=== PATIENT | female | born 1995 | race African-American/Black ===

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

== ENCOUNTER 2018-03-06 12:23 | Emergency (ER) | payer SELFPAY ==
[2018-03-06 14:13] LABS: NEGATIVE OBC STREP NEG; POSITIVE OBC STREP POS
== END 2018-03-06 14:12 | disposition home or self-care (01) ==
LOC: ER 14:12
DX: J02.9 Acute pharyngitis, unspecified (principal)
CPT/HCPCS: 87070; 87880; 99283

== ENCOUNTER 2018-10-03 15:56 | Emergency (ER) | payer SELFPAY ==
[~2018-10-03] VITALS: Ht 172.7 cm; Wt 72.6 kg
[~2018-10-03 15:56] MED LIST changes: +HYDR-3164 PO; -HYDR-971 PO; +METH4TAB2 PO
--- NOTE | 2018-10-03 16:11 | PHYS DOC ---
Past Medical History Past Medical History: Other Additional Past Medical Histor: heart murmur (YONY HOPE VICTOR HUGO) Past Surgical History: Other Additional Past Surgical Histo: open heart surgery@2months old (JAYYYONY GAY) Alcohol Use: None Drug Use: None (DEIDREJESSICAArthurYONY GAY) Adult General Chief Complaint Chief Complaint: SEXUALLY TRANSMITTED DISEASE HPI HPI Patient is a 22 year old female with no significant medical history who presents today requesting STD check. Patient states she typically gets tested for STDs every 3 months including blood work, she states she went to the facility where she does the testing that were able to draw blood but were not able to do a pelvic exam. Patient denies any symptoms. She states she has sex with one partner who has sex with multiple partners.[] (JAYYYONY GAY) Review of Systems Review of Systems Constitutional: Denies fever or chills [] GI: Request for STD checks. Denies abdominal pain, nausea, vomiting, bloody stools or diarrhea [] : Denies dysuria or hematuria [] Musculoskeletal: Denies back pain or joint pain [] Integument: Denies rash or skin lesions [] Neurologic: Denies headache, focal weakness or sensory changes [] All other systems were reviewed and found to be within normal limits, except as documented in this note. (YONY HOPE VICTOR HUGO) Current Medications Current Medications Current Medications Medications (Trade) Dose Ordered Sig/Andrew Start Time Stop Time Status Last Admin Dose Admin Azithromycin (Zithromax) 1,000 mg 1X ONCE 10/03/18 16:45 10/03/18 16:46 DC 10/03/18 16:44 1,000 MG Ceftriaxone Sodium (Rocephin Im) 250 mg 1X ONCE 10/03/18 16:45 10/03/18 16:46 DC 10/03/18 16:44 250 MG Metronidazole (Flagyl) 2,000 mg 1X ONCE 10/03/18 16:45 10/03/18 16:46 DC 10/03/18 16:43 2,000 MG (SABRINA BENNETT DO) Allergies Allergies Allergies Coded Allergies Type Severity Reaction Last Updated Verified No Known Drug Allergies 12/13/16 No (SABRINA BENNETT DO) Physical Exam Physical Exam Constitutional: Well developed, well nourished, no acute distress, non-toxic appearance. [] Abdomen: Bowel sounds normal, soft, no tenderness, no masses, no pulsatile masses. [] Pelvic exam External pelvic appears normal, cervix is closed, no CMT, no adnexal tenderness, Skin: Warm, dry, no erythema, no rash. [] Back: No tenderness, no CVA tenderness. [] Extremities: No tenderness, no cyanosis, no clubbing, ROM intact, no edema. [] Neurologic: Alert and oriented X 3, normal motor function, normal sensory function, no focal deficits noted. [] Psychologic: Affect normal, judgement normal, mood normal. [] (YONY HOPE APRN) Current Patient Data Vital Signs Vital Signs Date Time Temp Pulse Resp B/P (MAP) Pulse Ox O2 Delivery O2 Flow Rate FiO2 10/03/18 16: 98.4 81 16 128/85 (99) 100 Room Air 98.4 (ALGAentis) Lab Values Laboratory Tests Test 10/03/18 16:20 10/03/18 16:30 Urine Collection Type Unknown Urine Color Yellow Urine Clarity Clear Urine pH 7.5 Urine Specific Baker >=1.030 Urine Protein Negative mg/dL (NEG-TRACE) Urine Glucose (UA) Negative mg/dL (NEG) Urine Ketones (Stick) Negative mg/dL (NEG) Urine Blood Negative (NEG) Urine Nitrite Negative (NEG) Urine Bilirubin Negative (NEG) Urine Urobilinogen Dipstick 1.0 mg/dL (0.2 mg/dL) Urine Leukocyte Esterase Moderate (NEG) Urine RBC Occ /HPF (0-2) Urine WBC 20-40 /HPF (0-4) Urine Squamous Epithelial Cells Many /LPF Urine Bacteria Few /HPF (0-FEW) Urine Mucus Marked /LPF POC Urine HCG, Qualitative Hcg negative (Negative) Microbiology 10/03/18 Wet Prep - Final, Complete (ALGAentis) Lab Values Laboratory Tests Test 10/03/18 16:20 10/03/18 16:30 Urine Collection Type Unknown Urine Color Yellow Urine Clarity Clear Urine pH 7.5 Urine Specific Baker >=1.030 Urine Protein Negative mg/dL (NEG-TRACE) Urine Glucose (UA) Negative mg/dL (NEG) Urine Ketones (Stick) Negative mg/dL (NEG) Urine Blood Negative (NEG) Urine Nitrite Negative (NEG) Urine Bilirubin Negative (NEG) Urine Urobilinogen Dipstick 1.0 mg/dL (0.2 mg/dL) Urine Leukocyte Esterase Moderate (NEG) Urine RBC Occ /HPF (0-2) Urine WBC 20-40 /HPF (0-4) Urine Squamous Epithelial Cells Many /LPF Urine Bacteria Few /HPF (0-FEW) Urine Mucus Marked /LPF POC Urine HCG, Qualitative Hcg negative (Negative) Microbiology 10/03/18 Wet Prep - Final, Complete (YONY HOPE APRN) EKG EKG [] (YONY HOPE APRN) Radiology/Procedures Radiology/Procedures [] (YONY HOPE APRN) Course & Med Decision Making Course & Med Decision Making Pertinent Labs and Imaging studies reviewed. (See chart for details) This is a 22-year-old female patient presented to the ED today with STD concern. Patient would like to be tested. Patient was given prophylaxis treatment for STDs in the ED. STD education also provided. Negative urine hCG, urine analysis is noted for UTI-discharged on Bactrim. Positive for bacterial vaginosis-discharge and Flagyl. Follow-up with the health department as needed for STDs. (YONY HOPE APRN) Dragon Disclaimer Dragon Disclaimer This electronic medical record was generated, in whole or in part, using a voice recognition dictation system. (YONY HOPE APRN) Departure Departure Impression: Primary Impression: Concern about STD in female without diagnosis Additional Impressions: Bacterial vaginosis Urinary tract infection Disposition: 01 HOME, SELF-CARE Condition: STABLE Referrals: NO PCP (PCP) Follow-up with the health department in 1-2 weeks as needed Patient Instructions: Bacterial Vaginosis, Sexually Transmitted Disease, Urinary Tract Infection Additional Instructions: You were treated in the emergency room for sexually transmitted diseases specifically gonorrhea chlamydia and Trichomonas. Use protection at all times. Contact all your sex partners, let them know you were treated for STDs and ask them to seek treatment too. Use protection at all times. Complete the prescribed antibiotics for urinary tract infection and bacterial vaginosis. Do not have sex for one week. Scripts Fluconazole (DIFLUCAN) 150 Mg Tablet 1 TAB PO ONCE, #1 TAB 1 Refill Take one today and repeat in 1 week Prov: YONY HOPE APRN 10/03/18 Sulfamethoxazole/Trimethoprim (BACTRIM DS TABLET) 1 Each Tablet 1 TAB PO BID, #14 TAB Prov: YONY HOPE [employer] RESOURCES ENGINEER 10/03/18 Metronidazole (FLAGYL) 500 Mg Tablet 1 TAB PO BID, #10 TAB Prov: YONY HOPE [employer] ENGINEER 10/03/18 Attending Signature Attending Signature I have reviewed the PA/GUZZLER BUILDER's note and plan of care. I was available for consultation as needed during the patient's visit in the emergency department. I agree with the clinical impression, plan, and disposition. (SABRINA BENNETT DO) Problem Qualifiers Additional Impressions: Urinary tract infection Urinary tract infection type: site unspecified Hematuria presence: without hematuria Qualified Codes: N39.0 - Urinary tract infection, site not specified DEIDREYONY RODNEY VICTOR HUGO Oct 03, 2018 16:11 SABRINA BENNETT DO Oct 04, 2018 08:57
[2018-10-03 16:29] VITALS: BP 128/85
[2018-10-03 16:33] LABS: BILIRUBIN,URINE NEGATIVE (NEG); CLARITY,URINE CLEAR; COLOR,URINE YELLOW; NITRITE,URINE NEGATIVE (NEG); PH,URINE 7.5; PROTEIN,URINE NEGATIVE (NEG-TRACE)
[2018-10-03 16:39] LABS: BACTERIA,URINE FEW /HPF (0-FEW); RBC,URINE OCC /HPF (0-2); SQUAMOUS EPITHELIAL CELL,UR MANY /LPF; WBC,URINE 20-40 /HPF (0-4)
[2018-10-03] MEDS ORDERED: cefTRIAXone IM 250 MG VIAL IM ONE (16:45)
[2018-10-03] MEDS ORDERED: metroNIDAZOLE 500 MG TABLET PO ONE (16:45)
[2018-10-03] MEDS ORDERED: AZITHROMYCIN 250 MG TABLET. PO ONE (16:45)
[2018-10-03] MEDS ORDERED: METR500T PO (17:02)
[2018-10-03] MEDS ORDERED: SULF1TAB24 PO (17:02)
[2018-10-03] MEDS ORDERED: FLUC150T PO (17:02)
[2018-10-04 13:23] LABS: GC PROBE Negative (Negative)
== END 2018-10-03 17:05 | disposition home or self-care (01) ==
LOC: ER 15:56
DX: Z20.2 Contact with and (suspected) exposure to infections with a predominantly sexual mode of transmission (principal); N76.0 Acute vaginitis; B96.89 Other specified bacterial agents as the cause of diseases classified elsewhere; N39.0 Urinary tract infection, site not specified
CPT/HCPCS: 81001; 81025; 87491; 87591; 96372; 99283; J0696; Q0111; Q0144

== ENCOUNTER 2018-10-15 20:32 | Emergency (ER) | payer SELFPAY ==
[~2018-10-15] VITALS: Ht 172.7 cm; Wt 72.6 kg
[~2018-10-15 20:32] MED LIST changes: +FLUC150T PO; +METR500T PO; +SULF1TAB24 PO
[2018-10-15 20:35] VITALS: BP 110/61
--- NOTE | 2018-10-15 20:59 | PHYS DOC ---
Past Medical History Past Medical History: STD, Other Additional Past Medical Histor: heart murmur Past Surgical History: Other Additional Past Surgical Histo: open heart surgery@2months old Alcohol Use: None Drug Use: None Adult General Chief Complaint Chief Complaint: SEXUALLY TRANSMITTED DISEASE HPI HPI Patient is a 23 year old female who presents for STD treatment. Patient states she was treated for STDs on October 03, 2018, she states unfortunately she did not wait, she states she resumed unprotected sex right away and believes she contracted STDs again. She is complaining of vaginal itching and burning. She is refusing to be tested this time. She states she was informed last time she had chlamydia. She would like to be treated. She states she normally does "one night stands". She states she has multiple partners and her partners also have multiple partners. Review of Systems Review of Systems Constitutional: Denies fever or chills [] GI: Denies abdominal pain, nausea, vomiting, bloody stools or diarrhea [] : Vaginal itching, burning, concern for STDs Musculoskeletal: Denies back pain or joint pain [] Integument: Denies rash or skin lesions [] Neurologic: Denies headache, focal weakness or sensory changes [] All other systems were reviewed and found to be within normal limits, except as documented in this note. Current Medications Current Medications Current Medications Medications (Trade) Dose Ordered Sig/Andrew Start Time Stop Time Status Last Admin Dose Admin Azithromycin (Zithromax) 1,000 mg 1X ONCE 10/15/18 21:00 10/15/18 21:01 DC Ceftriaxone Sodium (Rocephin Im) 250 mg 1X ONCE 10/15/18 21:00 10/15/18 21:01 DC Metronidazole (Flagyl) 2,000 mg 1X ONCE 10/15/18 21:00 10/15/18 21:01 DC Allergies Allergies Allergies Coded Allergies Type Severity Reaction Last Updated Verified No Known Drug Allergies 12/13/16 No Physical Exam Physical Exam Constitutional: Well developed, well nourished, no acute distress, non-toxic appearance. [] Abdomen: Bowel sounds normal, soft, no tenderness, no masses, no pulsatile masses. [] Skin: Warm, dry, no erythema, no rash. [] Back: No tenderness, no CVA tenderness. [] Extremities: No tenderness, no cyanosis, no clubbing, ROM intact, no edema. [] Neurologic: Alert and oriented X 3, normal motor function, normal sensory function, no focal deficits noted. [] Psychologic: Affect normal, judgement normal, mood normal. [] Current Patient Data Vital Signs Vital Signs Date Time Temp Pulse Resp B/P (MAP) Pulse Ox O2 Delivery O2 Flow Rate FiO2 10/15/18 20:35 98.1 75 16 110/61 (77) 98 Room Air 98.1 EKG EKG [] Radiology/Procedures Radiology/Procedures [] Course & Med Decision Making Course & Med Decision Making Pertinent Labs and Imaging studies reviewed. (See chart for details) This is a 23-year-old. Patient presenting to the ED today to be treated for STDs. Patient was treated on October 03, 2018, she unfortunately had unprotected sex with a different partner. She states she currently has vaginal itching and burning. She would like to be treated and not to be tested because last time she tested positive for chlamydia. Patient has multiple partners and unprotected sex. Talked to patient about the need to use protection. Talked to her about the need to contact all has sex partners and let them know she was treated for STDs and ask them to seek treatment too. Talked to patient about following up with the health department. She seem to laugh during the conversations despite being told the seriousness of STDs. Patient was treated in the ED, given prescription for doxycycline. Dragon Disclaimer Dragon Disclaimer This electronic medical record was generated, in whole or in part, using a voice recognition dictation system. Departure Departure Impression: Primary Impression: Concern about STD in female without diagnosis Disposition: 01 HOME, SELF-CARE Condition: STABLE Referrals: NO PCP (PCP) Follow-up with the health department for further STD concerns Patient Instructions: Sexually Transmitted Disease Additional Instructions: You were treated for sexually transmitted diseases. We put you on doxycycline. Ensure you complete it. Please do not have sex for 2 weeks. Please consider using protection during sexual intercourse. Please contact all your sex partners , let them know you were treated for STDs and ask them to seek treatment too. Scripts Doxycycline Hyclate (DOXYCYCLINE HYCLATE) 100 Mg Tablet 1 TAB PO BID, #14 TAB Prov: YONY HOPE APRN 10/15/18 YONY HOPE APRN Oct 15, 2018 20:59
[2018-10-15] MEDS ORDERED: cefTRIAXone IM 250 MG VIAL IM ONE (21:00)
[2018-10-15] MEDS ORDERED: metroNIDAZOLE 500 MG TABLET PO ONE (21:00)
[2018-10-15] MEDS ORDERED: AZITHROMYCIN 250 MG TABLET. PO ONE (21:00)
[2018-10-15] MEDS ORDERED: DOXY100T PO (21:08)
[2019-03-24] MEDS ORDERED: MUPI22OI2 TP (15:44)
[2019-03-24] MEDS ORDERED: PRED20TA PO (15:44)
== END 2018-10-15 21:35 | disposition home or self-care (01) ==
LOC: ER 20:32
DX: L29.3 Anogenital pruritus, unspecified (principal); Z20.2 Contact with and (suspected) exposure to infections with a predominantly sexual mode of transmission
CPT/HCPCS: 96372; 99283; J0696; Q0144

== ENCOUNTER 2018-11-17 15:34 | Emergency (ER) | payer SELFPAY ==
[~2018-11-17] VITALS: Ht 172.7 cm; Wt 73.9 kg
[~2018-11-17 15:34] MED LIST changes: +DOXY100T PO
[2018-11-17 17:03] LABS: BILIRUBIN,URINE NEGATIVE (NEG); CLARITY,URINE CLEAR; COLOR,URINE YELLOW; NITRITE,URINE NEGATIVE (NEG); PROTEIN,URINE NEGATIVE (NEG-TRACE); UROBILINOGEN,URINE 0.2 mg/dL (0.2 mg/dL)
[2018-11-17 17:39] LABS: RBC,URINE 0 /HPF (0-2); WBC,URINE OCC /HPF (0-4)
--- NOTE | 2018-11-17 17:39 | PHYS DOC ---
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 She states that she took a home test that was positive a week ago. She denies any abdominal pain, dysuria, vaginal bleeding, irregular vaginal discharge, or fever. She states she has had some dark brown vaginal bleeding after intercourse recently. Pt declines a pelvic exam. She states she would like to know how far along she is. Pt reports her LMP was 09/20/18. She denies any nausea at this time. Pt states she has only vomited once per day first thing in the mornings. She denies any dizziness. (PHOENIX ALEX APRN) Review of Systems Review of Systems Constitutional: Denies fever or chills [] Cardiovascular: No additional information not addressed in HPI [] GI: Reports lower abdominal bloating, see HPI : Denies dysuria or hematuria; See HPI [] Integument: Denies rash or skin lesions [] Neurologic: Denies headache (PHOENIX ALEX APRN) Allergies Allergies Allergies Coded Allergies Type Severity Reaction Last Updated Verified No Known Drug Allergies 12/13/16 No (SHAILA ROMEO MD) Physical Exam Physical Exam Constitutional: Well developed, well nourished, no acute distress, non-toxic appearance. [] HENT: Normocephalic, atraumatic, bilateral external ears normal, oropharynx moist, no oral exudates, nose normal. [] Eyes: conjunctiva normal, no discharge. [] Neck: Normal range of motion, no stridor. [] Lungs & Thorax: respirations even and unlabored, no retractions. Abdomen: soft, no tenderness, no masses, no pulsatile masses. [] Skin: Warm, dry, no erythema, no rash. [] Extremities: No cyanosis, no clubbing, ROM intact, Neurologic: Alert and oriented X 3, no focal deficits noted. [] Psychologic: Affect normal, judgement normal, mood normal. [] (PHOENIX ALEX APRN) Current Patient Data Vital Signs Vital Signs Date Time Temp Pulse Resp B/P (MAP) Pulse Ox O2 Delivery O2 Flow Rate FiO2 11/17/18 17:50 81 16 122/60 (80) 100 Room Air 11/17/18 16:34 98.7 98.7 (SHAILA ROMEO MD) Lab Values Laboratory Tests Test 11/17/18 16:50 11/17/18 16:55 Urine Color Yellow Urine Clarity Clear Urine pH 8.0 Urine Specific Darrow 1.020 Urine Protein Negative mg/dL (NEG-TRACE) Urine Glucose (UA) Negative mg/dL (NEG) Urine Ketones (Stick) Negative mg/dL (NEG) Urine Blood Negative (NEG) Urine Nitrite Negative (NEG) Urine Bilirubin Negative (NEG) Urine Urobilinogen Dipstick 0.2 mg/dL (0.2 mg/dL) Urine Leukocyte Esterase Negative (NEG) Urine RBC 0 /HPF (0-2) Urine WBC Occ /HPF (0-4) Urine Squamous Epithelial Cells Occ /LPF Urine Bacteria Few /HPF (0-FEW) Urine Mucus Slight /LPF POC Urine HCG, Qualitative Hcg positive (Negative) (SHAILA ROMEO MD) EKG EKG [] (PHOENIX ALEX APRN) Radiology/Procedures Radiology/Procedures pt declined pelvic exam, denies any vaginal bleeding or irregular discharge today. [] (PHOENIX ALEX APRN) Course & Med Decision Making Course & Med Decision Making Pertinent Labs and Imaging studies reviewed. (See chart for details) Urine test was positive, bedside ultrasound revealed a pole visible in uterus with a HR of 150, pt declined pelvic ultrasound and pelvic exam. According to LMP, EDC is 06/27/19 and gestational age is 8 weeks 2 days. Pt was encouraged to follow up with Dr. Bro for further care. [] (PHOENIX ALEX APRN) Course & Med Decision Making Staff Physician Addendum: I was working in the ER during the course of this patient's visit. I was available for consultation as needed, but I was not directly involved in the care of this patient. (SHAILA ROMEO MD) Dragon Disclaimer Dragon Disclaimer This electronic medical record was generated, in whole or in part, using a voice recognition dictation system. (PHOENIX ALEX APRN) Departure Departure Impression: Primary Impression: Disposition: 01 HOME, SELF-CARE Condition: STABLE Referrals: NO PCP (PCP) KATHRIN BRO MD Patient Instructions: ABCs of Additional Instructions: According to your last menstrual cycle your due date is 06/27/19 and the baby's gestational age is 8 weeks 2 days. Begin taking a vitamin daily. Call Dr. Bro's office to establish care with an OBGyn. Return to the ER if your symptoms worsen. Problem Qualifiers Primary Impression: Weeks of gestation: 8 weeks Qualified Codes: Z3A.08 - 8 weeks gestation of PHOENIX ALEX APRN Nov 17, 2018 17:39 SHAILA ROMEO MD Nov 18, 2018 08:08
[2018-11-17 17:40] LABS: BACTERIA,URINE FEW /HPF (0-FEW); SQUAMOUS EPITHELIAL CELL,UR OCC /LPF
[2018-11-17 17:50] VITALS: BP 122/60
== END 2018-11-17 17:57 | disposition home or self-care (01) ==
LOC: ER 15:34
DX: O21.8 Other vomiting complicating pregnancy (principal); R14.0 Abdominal distension (gaseous); Z3A.08 8 weeks gestation of pregnancy
CPT/HCPCS: 81001; 81025; 99283

== ENCOUNTER 2018-11-30 10:47 | Emergency (ER) | payer SELFPAY ==
[~2018-11-30] VITALS: Ht 172.7 cm; Wt 61.7 kg
[2018-11-30] MEDS ORDERED: IV NORMAL SALINE 1000ML BAG 1,000 ML IV SCH (11:51)
[2018-11-30] MEDS ORDERED: ONDANSETRON PF 4 MG/2 ML VIAL. IV ONE (12:00)
[2018-11-30 12:22] LABS: BILIRUBIN,URINE NEGATIVE (NEG); CLARITY,URINE CLOUDY; COLOR,URINE YELLOW; NITRITE,URINE NEGATIVE (NEG); PH,URINE 8.5; PROTEIN,URINE NEGATIVE (NEG-TRACE); UROBILINOGEN,URINE 0.2 mg/dL (0.2 mg/dL)
[2018-11-30 12:37] LABS: SQUAMOUS EPITHELIAL CELL,UR MOD /LPF
[2018-11-30 12:38] LABS: AMORPHOUS SEDIMENT,UR PRESENT /HPF; BACTERIA,URINE FEW /HPF (0-FEW); RBC,URINE 0 /HPF (0-2); WBC,URINE OCC /HPF (0-4)
[2018-11-30 12:46] LABS: BASO # 0.1 x10^3/uL (0.0-0.2); BASO % 2 % (0-3); EOS # 0.1 x10^3/uL (0.0-0.7); EOS % 1 % (0-3); HEMATOCRIT 37.1 % (36.0-47.0); HEMOGLOBIN 11.8 g/dL (12.0-15.5); LYMPH # 1.4 x10^3/uL (1.0-4.8); LYMPH % 26 % (24-48); MEAN CORPUSCULAR HEMOGLOBIN 28 pg (25-35); MEAN CORPUSCULAR HGB CONC 32 g/dL (31-37); MEAN CORPUSCULAR VOLUME 87 fL (79-100); MONO # 0.4 x10^3/uL (0.0-1.1); MONO % 7 % (0-9); NEUT # 3.6 x10^3uL (1.8-7.7); NEUT % 65 % (31-73); PLATELET COUNT 206 x10^3/uL (140-400); RED BLOOD COUNT 4.26 x10^6/uL (3.50-5.40); RED CELL DISTRIBUTION WIDTH 14.6 % (11.5-14.5); WHITE BLOOD COUNT 5.5 x10^3/uL (4.0-11.0)
--- NOTE | 2018-11-30 12:47 | PHYS DOC ---
Past Medical History Past Medical History: No Pertinent History, STD, Other Additional Past Medical Histor: heart murmur from FO or tetralogy Past Surgical History: Other Additional Past Surgical Histo: open heart surgery@2months old Alcohol Use: None Drug Use: None Adult General Chief Complaint Chief Complaint: VOMITING IN HPI HPI Patient is a 23 year old female at 10 weeks of gestation who presents with complaining of nausea and vomiting. Patient complaining of 3 episodes of vomiting a day for the last 3 weeks and states she is not able to eat or drink. Patient denies abdominal pain, vaginal bleeding or discharge, urinary symptoms, fever and chills. Patient did not have OB care yet. Review of Systems Review of Systems Constitutional: Denies fever or chills [] Eyes: Denies change in visual acuity, redness, or eye pain [] HENT: Denies nasal congestion or sore throat [] Respiratory: Denies cough or shortness of breath [] Cardiovascular: No additional information not addressed in HPI [] GI: Denies abdominal pain, diarrhea, reports nausea, vomiting [] : Denies dysuria or hematuria [] Musculoskeletal: Denies back pain or joint pain [] Integument: Denies rash or skin lesions [] Neurologic: Denies headache, focal weakness or sensory changes [] Endocrine: Denies polyuria or polydipsia [] All other systems were reviewed and found to be within normal limits, except as documented in this note. Current Medications Current Medications Current Medications Medications (Trade) Dose Ordered Sig/Andrew Start Time Stop Time Status Last Admin Dose Admin Ondansetron HCl (Zofran) 4 mg 1X ONCE 11/30/18 12:00 11/30/18 12:01 DC 11/30/18 12:30 4 MG Sodium Chloride 1,000 ml @ 1,000 mls/hr Q1H 11/30/18 11:51 11/30/18 12:50 DC 11/30/18 12:30 1,000 MLS/HR Allergies Allergies Allergies Coded Allergies Type Severity Reaction Last Updated Verified No Known Drug Allergies 12/13/16 No Physical Exam Physical Exam Constitutional: Well developed, well nourished, mild distress, non-toxic appearance. [] HENT: Normocephalic, atraumatic, oropharynx moist. [] Eyes: PERRLA, EOMI, conjunctiva normal, no discharge. [] Neck: Normal range of motion, no tenderness, supple, no stridor. [] Cardiovascular:Heart rate regular rhythm, no murmur [] Lungs & Thorax: Bilateral breath sounds clear to auscultation [] Abdomen: Bowel sounds normal, soft, no tenderness, no masses, no pulsatile masses. heart rate 190[] Skin: Warm, dry, no erythema, no rash. [] Back: No tenderness, no CVA tenderness. [] Extremities: No tenderness, no cyanosis, no clubbing, ROM intact, no edema. [] Neurologic: Alert and oriented X 3, normal motor function, normal sensory function, no focal deficits noted. [] Psychologic: Affect normal, judgement normal, mood normal. [] Current Patient Data Vital Signs Vital Signs Date Time Temp Pulse Resp B/P (MAP) Pulse Ox O2 Delivery O2 Flow Rate FiO2 11/30/18 11:00 97.2 93 18 108/74 (85) 100 Room Air 97.2 Lab Values Laboratory Tests Test 11/30/18 12:07 11/30/18 12:11 11/30/18 12:30 Urine Collection Type Unknown Urine Color Yellow Urine Clarity Cloudy Urine pH 8.5 Urine Specific [place] 1.020 Urine Protein Negative mg/dL (NEG-TRACE) Urine Glucose (UA) Negative mg/dL (NEG) Urine Ketones (Stick) Negative mg/dL (NEG) Urine Blood Negative (NEG) Urine Nitrite Negative (NEG) Urine Bilirubin Negative (NEG) Urine Urobilinogen Dipstick 0.2 mg/dL (0.2 mg/dL) Urine Leukocyte Esterase Negative (NEG) Urine RBC 0 /HPF (0-2) Urine WBC Occ /HPF (0-4) Urine Squamous Epithelial Cells Mod /LPF Urine Amorphous Sediment Present /HPF Urine Bacteria Few /HPF (0-FEW) POC Urine HCG, Qualitative Hcg positive (Negative) White Blood Count 5.5 x10^3/uL (4.0-11.0) Red Blood Count 4.26 x10^6/uL (3.50-5.40) Hemoglobin 11.8 g/dL (12.0-15.5) L Hematocrit 37.1 % (36.0-47.0) Mean Corpuscular Volume 87 fL (79-100) Mean Corpuscular Hemoglobin 28 pg (25-35) Mean Corpuscular Hemoglobin Concent 32 g/dL (31-37) Red Cell Distribution Width 14.6 % (11.5-14.5) H Platelet Count 206 x10^3/uL (140-400) Neutrophils (%) (Auto) 65 % (31-73) Lymphocytes (%) (Auto) 26 % (24-48) Monocytes (%) (Auto) 7 % (0-9) Eosinophils (%) (Auto) 1 % (0-3) Basophils (%) (Auto) 2 % (0-3) Neutrophils # (Auto) 3.6 x10^3uL (1.8-7.7) Lymphocytes # (Auto) 1.4 x10^3/uL (1.0-4.8) Monocytes # (Auto) 0.4 x10^3/uL (0.0-1.1) Eosinophils # (Auto) 0.1 x10^3/uL (0.0-0.7) Basophils # (Auto) 0.1 x10^3/uL (0.0-0.2) Maternal Serum HCG Beta Subunit 975775 mIU/mL (0-5) H Sodium Level 138 mmol/L (136-145) Potassium Level 4.0 mmol/L (3.5-5.1) Chloride Level 102 mmol/L (98-107) Carbon Dioxide Level 25 mmol/L (21-32) Anion Gap 11 (6-14) Blood Urea Nitrogen 9 mg/dL (7-20) Creatinine 0.5 mg/dL (0.6-1.0) L Estimated GFR (Cockcroft-Gault) 188.5 BUN/Creatinine Ratio 18 (6-20) Glucose Level 89 mg/dL (70-99) Calcium Level 9.3 mg/dL (8.5-10.1) Total Bilirubin 0.5 mg/dL (0.2-1.0) Aspartate Amino Transferase (AST) 13 U/L (15-37) L Alanine Aminotransferase (ALT) 14 U/L (14-59) Alkaline Phosphatase 60 U/L (46-116) Total Protein 7.3 g/dL (6.4-8.2) Albumin 4.1 g/dL (3.4-5.0) Albumin/Globulin Ratio 1.3 (1.0-1.7) Laboratory Tests 11/30/18 12:30 Laboratory Tests 11/30/18 12:30 EKG EKG [] Radiology/Procedures Radiology/Procedures [] Course & Med Decision Making Course & Med Decision Making Pertinent Labs reviewed. (See chart for details) Evaluation of patient in ER showed 23-year-old female patient at 10 weeks of gestation with complaining of episodes of vomiting for several weeks. Patient had unremarkable physical exam. Patient had intrauterine confirmed with previous ultrasound. Patient treated with IV fluid and Zofran and tolerated oral intake. Labs was unremarkable. Patient was advised to follow-up with her FOOD EQUIPMENT SERVICE TECHNICIAN. Prescription for Zofran was given. Dragon Disclaimer Dragon Disclaimer This electronic medical record was generated, in whole or in part, using a voice recognition dictation system. Departure Departure Impression: Primary Impression: Hyperemesis gravidarum Disposition: HOME, SELF-CARE (at 1347) Condition: IMPROVED Referrals: NO PCP (PCP) Patient Instructions: Diet - Hyperemesis Gravidarum, Hyperemesis Gravidarum Additional Instructions: Drink plenty of liquids Follow-up with your FOOD EQUIPMENT SERVICE TECHNICIAN physician in 3-5 days Return to ER if not getting better Scripts Ondansetron Hcl (ZOFRAN) 4 Mg Tablet 1 TAB PO PRN Q6-8HRS for nausea, #20 TAB Prov: TIM LEONARD MD 11/30/18 TIM LEONARD MD Nov 30, 2018 12:47
[2018-11-30 12:57] LABS: CALCIUM 9.3 mg/dL (8.5-10.1); CREATININE 0.5 mg/dL (0.6-1.0); GFR 188.5
[2018-11-30 13:00] VITALS: BP 98/60
[2018-11-30 13:02] LABS: ALBUMIN 4.1 g/dL (3.4-5.0); ALBUMIN/GLOBULIN RATIO 1.3 (1.0-1.7); TOTAL BILIRUBIN 0.5 mg/dL (0.2-1.0); TOTAL PROTEIN 7.3 g/dL (6.4-8.2)
[2018-11-30] MEDS ORDERED: ONDA4TAB7 PO (13:48)
== END 2018-11-30 14:05 | disposition home or self-care (01) ==
LOC: ER 10:47
DX: O21.0 Mild hyperemesis gravidarum (principal); Z3A.10 10 weeks gestation of pregnancy
CPT/HCPCS: 36415; 80053; 81001; 81025; 84702; 85025; 96361; 96374; 99283; J2405; J7030

== ENCOUNTER 2018-12-13 08:22 | Emergency (ER) | payer SELFPAY ==
[~2018-12-13] VITALS: Ht 172.7 cm; Wt 59.4 kg
[~2018-12-13 08:22] MED LIST changes: +ONDA4TAB7 PO
--- NOTE | 2018-12-13 08:49 | PHYS DOC ---
Past Medical History Past Medical History: No Pertinent History, STD, Other Additional Past Medical Histor: heart murmur from FO or tetralogy Past Surgical History: Other Additional Past Surgical Histo: open heart surgery@2months old Alcohol Use: None Drug Use: None Adult General Chief Complaint Chief Complaint: VAGINAL BLEEDING HPI HPI Patient is a 23 year old female is 1 para 0 currently 12 weeks presenting to the ED today complaining of spotting that began this morning. Patient denies any abdominal pain. Denies any nausea or vomiting she states she is supposed to see Dr. Morales next week. Patient also states she is currently on Monistat for vaginal candidiasis. Review of Systems Review of Systems Constitutional: Denies fever or chills [] Eyes: Denies change in visual acuity, redness, or eye pain [] HENT: Denies nasal congestion or sore throat [] Respiratory: Denies cough or shortness of breath [] Cardiovascular: No additional information not addressed in HPI [] GI: Reports vag. spotting. Denies abdominal pain, nausea, vomiting, bloody stools or diarrhea [] : Denies dysuria or hematuria [] Musculoskeletal: Denies back pain or joint pain [] Integument: Denies rash or skin lesions [] Neurologic: Denies headache, focal weakness or sensory changes [] All other systems were reviewed and found to be within normal limits, except as documented in this note. Current Medications Current Medications Current Medications Medications (Trade) Dose Ordered Sig/Anderw Start Time Stop Time Status Last Admin Dose Admin Prochlorperazine Edisylate (Compazine) 10 mg 1X ONCE 12/13/18 12:15 12/13/18 12:17 DC Allergies Allergies Allergies Coded Allergies Type Severity Reaction Last Updated Verified No Known Drug Allergies 12/13/16 No Physical Exam Physical Exam Constitutional: Well developed, well nourished, no acute distress, non-toxic appearance. [] HENT: Normocephalic, atraumatic, bilateral external ears normal, oropharynx moist, no oral exudates, nose normal. [] Eyes: PERRLA, EOMI, conjunctiva normal, no discharge. [] Neck: Normal range of motion, no tenderness, supple, no stridor. [] Cardiovascular:Heart rate regular rhythm, no murmur [] Lungs & Thorax: Bilateral breath sounds clear to auscultation [] Abdomen: Bowel sounds normal, soft, no tenderness, no masses, no pulsatile masses. [] Pelvic exam. External pelvic appears normal, cervix is visualized, closed, no CMT, no adnexal tenderness, trace amount of brownish discharge in the vaginal vault consistent with spotting Skin: Warm, dry, no erythema, no rash. [] Back: No tenderness, no CVA tenderness. [] Extremities: No tenderness, no cyanosis, no clubbing, ROM intact, no edema. [] Neurologic: Alert and oriented X 3, normal motor function, normal sensory function, no focal deficits noted. [] Psychologic: Affect normal, judgement normal, mood normal. [] Current Patient Data Vital Signs Vital Signs Date Time Temp Pulse Resp B/P (MAP) Pulse Ox O2 Delivery O2 Flow Rate FiO2 12/13/18 08:25 97.6 87 14 133/80 (97) 100 Room Air 97.6 Lab Values Laboratory Tests Test 12/13/18 08:25 12/13/18 08:44 12/13/18 11:03 Urine Collection Type Unknown Urine Color Yellow Urine Clarity Cloudy Urine pH 7.0 Urine Specific [place] 1.025 Urine Protein Negative mg/dL (NEG-TRACE) Urine Glucose (UA) Negative mg/dL (NEG) Urine Ketones (Stick) Negative mg/dL (NEG) Urine Blood Moderate (NEG) Urine Nitrite Negative (NEG) Urine Bilirubin Negative (NEG) Urine Urobilinogen Dipstick 0.2 mg/dL (0.2 mg/dL) Urine Leukocyte Esterase Moderate (NEG) Urine RBC 0 /HPF (0-2) Urine WBC 11-20 /HPF (0-4) Urine Squamous Epithelial Cells Mod /LPF Urine Amorphous Sediment Present /HPF Urine Bacteria Few /HPF (0-FEW) Urine Mucus Marked /LPF Urine Opiates Screen Neg (NEG) Urine Methadone Screen Neg (NEG) Urine Barbiturates Neg (NEG) Urine Phencyclidine Screen Neg (NEG) Urine Amphetamine/Methamphetamine Neg (NEG) Urine Benzodiazepines Screen Neg (NEG) Urine Cocaine Screen Neg (NEG) Urine Cannabinoids Screen Neg (NEG) Urine Ethyl Alcohol Neg (NEG) POC Urine HCG, Qualitative Hcg positive (Negative) White Blood Count 6.7 x10^3/uL (4.0-11.0) Red Blood Count 4.49 x10^6/uL (3.50-5.40) Hemoglobin 12.5 g/dL (12.0-15.5) Hematocrit 38.8 % (36.0-47.0) Mean Corpuscular Volume 87 fL (79-100) Mean Corpuscular Hemoglobin 28 pg (25-35) Mean Corpuscular Hemoglobin Concent 32 g/dL (31-37) Red Cell Distribution Width 14.4 % (11.5-14.5) Platelet Count 250 x10^3/uL (140-400) Neutrophils (%) (Auto) 70 % (31-73) Lymphocytes (%) (Auto) 21 % (24-48) L Monocytes (%) (Auto) 8 % (0-9) Eosinophils (%) (Auto) 1 % (0-3) Basophils (%) (Auto) 0 % (0-3) Neutrophils # (Auto) 4.7 x10^3uL (1.8-7.7) Lymphocytes # (Auto) 1.4 x10^3/uL (1.0-4.8) Monocytes # (Auto) 0.5 x10^3/uL (0.0-1.1) Eosinophils # (Auto) 0.1 x10^3/uL (0.0-0.7) Basophils # (Auto) 0.0 x10^3/uL (0.0-0.2) Maternal Serum HCG Beta Subunit 315016 mIU/mL (0-5) H Sodium Level 139 mmol/L (136-145) Potassium Level 3.6 mmol/L (3.5-5.1) Chloride Level 103 mmol/L (98-107) Carbon Dioxide Level 23 mmol/L (21-32) Anion Gap 13 (6-14) Blood Urea Nitrogen 9 mg/dL (7-20) Creatinine 0.6 mg/dL (0.6-1.0) Estimated GFR (Cockcroft-Gault) 152.7 BUN/Creatinine Ratio 15 (6-20) Glucose Level 79 mg/dL (70-99) Calcium Level 8.9 mg/dL (8.5-10.1) Total Bilirubin 0.6 mg/dL (0.2-1.0) Aspartate Amino Transferase (AST) 12 U/L (15-37) L Alanine Aminotransferase (ALT) 12 U/L (14-59) L Alkaline Phosphatase 54 U/L (46-116) Total Protein 7.5 g/dL (6.4-8.2) Albumin 4.0 g/dL (3.4-5.0) Albumin/Globulin Ratio 1.1 (1.0-1.7) Ethyl Alcohol Level < 10 mg/dL (0-10) Laboratory Tests 12/13/18 11:03 Laboratory Tests 12/13/18 11:03 Microbiology 12/13/18 Wet Prep - Final, Complete Microbiology 12/13/18 Wet Prep - Final, Complete EKG EKG [] Radiology/Procedures Radiology/Procedures []PROCEDURE: OB < 14 WKS Examination: OB < 14 WKS History: HX VAGINAL BLEEDING IN PREG, 12 WEEKS Comparison/Correlation: None Findings: OB ultrasound exam was performed. Subchorionic hemorrhage at the right frontal region is present measuring 1.8 cm x 1 cm x 1.7 cm. Uterus measures 10.1 cm x 8.6 cm x 9.7 cm. Intrauterine pole is present with crown-rump length of 5.71 cm corresponding to 12 weeks 2 days. EDC by ultrasound is 06/25/2019. heart rate is 171 bpm. Pelvic free fluid noted and presumably physiologic. Ovaries are not identified. Impression: Small fundal subchorionic hemorrhage. Single living intrauterine gestation with a crown-rump length corresponding to 12 weeks 2 days. Electronically signed by: Lj Rice MD (12/13/2018 9:13 AM) [facility] DICTATED and SIGNED BY: LJ RICE MD DATE: 12/13/1813 Course & Med Decision Making Course & Med Decision Making Pertinent Labs and Imaging studies reviewed. (See chart for details) This is a 23-year-old female patient 1 para 0 currently 12 weeks presenting to the ED with vaginal spotting that began this morning. Patient also states she is currently on Monistat for vaginal candidiasis. On pelvic exam she had trace amount of brownish discharge in the vaginal vault. OB ultrasound -Small fundal subchorionic hemorrhage. Single living intrauterine gestation with a crown-rump length corresponding to 12 weeks 2 days. Wet prep is negative. Positive urine hCG, urine analysis is noted for UTI, discharged on cephalexin Blood group A+. Patient states she has an appointment with her TRANSPLANT RN coming up in a couple days. She will follow-up. She was instructed to maintain pelvic rest, no sex, no strenuous activities. She was notably nauseated and spitting during her stay. I gave her Compazine IM and send her home with a prescription for the same. Cristina Disclaimer Dragon Disclaimer This electronic medical record was generated, in whole or in part, using a voice recognition dictation system. Departure Departure Impression: Primary Impression: Subchorionic hematoma in second trimester Additional Impressions: Urinary tract infection during Nausea and vomiting during Disposition: HOME, SELF-CARE Condition: STABLE Referrals: NO PCP (PCP) KATHRIN MORALES MD Follow-up as soon as possible Patient Instructions: Diet - Hyperemesis Gravidarum, Hyperemesis Gravidarum, - Urinary Tract Infection, Subchorionic Hematoma Additional Instructions: You were evaluated in the emergency room for vaginal bleeding in . Your were noted to have a small subchorionic hemorrhage. Please follow-up with your TRANSPLANT RN as scheduled in a couple days. Please maintain pelvic rest, this includes no sex, no strenuous activities. You also have urinary tract infection , take the prescribed antibiotics until completed. Scripts Prochlorperazine Maleate (Compazine) 10 Mg Tablet 10 MG PO TID PRN PRN for NAUSEA, #60 TAB Prov: YONY HOPE APRN 12/13/18 Cephalexin (CEPHALEXIN) 500 Mg Tablet 1 TAB PO BID, #14 TAB Prov: YONY HOPE APRN 12/13/18 Problem Qualifiers Primary Impression: Subchorionic hematoma in second trimester Fetus number: single or unspecified fetus Qualified Codes: O41.8X20 - Other specified disorders of amniotic fluid and membranes, second trimester, not applicable or unspecified; O46.8X2 - Other antepartum hemorrhage, second trimester Additional Impressions: Urinary tract infection during Trimester: second trimester Qualified Codes: O23.42 - Unspecified infection of urinary tract in , second trimester YONY HOPE APRN Dec 13, 2018 08:49
[2018-12-13 09:02] LABS: BILIRUBIN,URINE NEGATIVE (NEG); CLARITY,URINE CLOUDY; COLOR,URINE YELLOW; NITRITE,URINE NEGATIVE (NEG); PROTEIN,URINE NEGATIVE (NEG-TRACE); UROBILINOGEN,URINE 0.2 mg/dL (0.2 mg/dL)
[2018-12-13 09:10] LABS: BARBITURATES NEG (NEG); BENZODIAZEPINES NEG (NEG); CANNABINOIDS NEG (NEG); COCAINE NEG (NEG); METHADONE NEG (NEG); OPIATES NEG (NEG); PHENCYCLIDINE NEG (NEG)
[2018-12-13 09:13] LABS: AMPHETAMINE/METHAMPHETAMINE NEG (NEG)
[2018-12-13 09:14] LABS: SQUAMOUS EPITHELIAL CELL,UR MOD /LPF
[2018-12-13 09:15] LABS: AMORPHOUS SEDIMENT,UR PRESENT /HPF; BACTERIA,URINE FEW /HPF (0-FEW); RBC,URINE 0 /HPF (0-2)
--- NOTE | 2018-12-13 09:16 | RAD ---
Examination: OB < 14 WKS History: HX VAGINAL BLEEDING IN PREG, 12 WEEKS Comparison/Correlation: None Findings: OB ultrasound exam was performed. Subchorionic hemorrhage at the right frontal region is present measuring 1.8 cm x 1 cm x 1.7 cm. Uterus measures 10.1 cm x 8.6 cm x 9.7 cm. Intrauterine pole is present with crown-rump length of 5.71 cm corresponding to 12 weeks 2 days. EDC by ultrasound is 06/25/2019. heart rate is 171 bpm. Pelvic free fluid noted and presumably physiologic. Ovaries are not identified. Impression: Small fundal subchorionic hemorrhage. Single living intrauterine gestation with a crown-rump length corresponding to 12 weeks 2 days. Electronically signed by: Lj Kim MD (12/13/2018 9:13 AM) [facility]
[2018-12-13 11:29] LABS: BASO % 0 % (0-3); EOS # 0.1 x10^3/uL (0.0-0.7); EOS % 1 % (0-3); HEMATOCRIT 38.8 % (36.0-47.0); HEMOGLOBIN 12.5 g/dL (12.0-15.5); LYMPH # 1.4 x10^3/uL (1.0-4.8); LYMPH % 21 % (24-48); MEAN CORPUSCULAR HEMOGLOBIN 28 pg (25-35); MEAN CORPUSCULAR HGB CONC 32 g/dL (31-37); MEAN CORPUSCULAR VOLUME 87 fL (79-100); MONO # 0.5 x10^3/uL (0.0-1.1); MONO % 8 % (0-9); NEUT # 4.7 x10^3uL (1.8-7.7); NEUT % 70 % (31-73); PLATELET COUNT 250 x10^3/uL (140-400); RED BLOOD COUNT 4.49 x10^6/uL (3.50-5.40); RED CELL DISTRIBUTION WIDTH 14.4 % (11.5-14.5); WHITE BLOOD COUNT 6.7 x10^3/uL (4.0-11.0)
[2018-12-13 11:34] LABS: CALCIUM 8.9 mg/dL (8.5-10.1); CREATININE 0.6 mg/dL (0.6-1.0); GFR 152.7; POTASSIUM 3.6 mmol/L (3.5-5.1)
[2018-12-13 11:39] LABS: ALBUMIN/GLOBULIN RATIO 1.1 (1.0-1.7); TOTAL BILIRUBIN 0.6 mg/dL (0.2-1.0); TOTAL PROTEIN 7.5 g/dL (6.4-8.2)
[2018-12-13] MEDS ORDERED: PROCHLORPERAZINE 10 MG/2 ML VIAL. IM ONE (12:15)
[2018-12-13] MEDS ORDERED: PROC10TA57 PO (12:26)
[2018-12-13] MEDS ORDERED: CEPH500T PO (12:26)
[2018-12-13 12:50] VITALS: BP 102/66
[2018-12-14 13:23] LABS: GC PROBE Negative (Negative)
== END 2018-12-13 12:50 | disposition home or self-care (01) ==
LOC: ER 08:22
DX: O41.8X20 Other specified disorders of amniotic fluid and membranes, second trimester, not applicable or unspecified (principal); O21.8 Other vomiting complicating pregnancy; O23.41 Unspecified infection of urinary tract in pregnancy, first trimester; O41.8X10 Other specified disorders of amniotic fluid and membranes, first trimester, not applicable or unspecified; O46.8X1 Other antepartum hemorrhage, first trimester; Z3A.12 12 weeks gestation of pregnancy
CPT/HCPCS: 36415; 76801; 80053; 80307; 81001; 81025; 84702; 85025; 86850; 86900; 86901; 87086; 87491; 87591; 96372; 99284; G0480; J0780; Q0111

== ENCOUNTER 2018-12-17 15:01 | Emergency (ER) | payer SELFPAY ==
[~2018-12-17 15:01] MED LIST changes: +CEPH500T PO; +PROC10TA57 PO
--- NOTE | 2018-12-17 15:19 | PHYS DOC ---
Past Medical History Past Medical History: No Pertinent History, STD, Other Additional Past Medical Histor: heart murmur from FO or tetralogy Past Surgical History: Other Additional Past Surgical Histo: open heart surgery@2months old Alcohol Use: None Drug Use: None Adult General Chief Complaint Chief Complaint: VAGINAL BLEEDING [facility] HPI Patient is a 23 year old female who presents with vaginal bleeding and . The patient states that she is 12 weeks . She does not have established care with an operations developer. She states that when she went to the restroom today she had blood in the toilet, similar to when you are finishing a period. She denies abdominal pain, fever or dysuria. Review of Systems Review of Systems Constitutional: Denies fever or chills [] Eyes: Denies change in visual acuity, redness, or eye pain [] HENT: Denies nasal congestion or sore throat [] Respiratory: Denies cough or shortness of breath [] Cardiovascular: No additional information not addressed in HPI [] GI: See history of present illness : See history of present illness Musculoskeletal: Denies back pain or joint pain [] Integument: Denies rash or skin lesions [] Neurologic: Denies headache, focal weakness or sensory changes [] Endocrine: Denies polyuria or polydipsia [] All other systems were reviewed and found to be within normal limits, except as documented in this note. Allergies Allergies Allergies Coded Allergies Type Severity Reaction Last Updated Verified No Known Drug Allergies 12/13/16 No Physical Exam Physical Exam When I entered the room to talk to the patient and discussed the plan she asked if we were going to be drawing blood. I said yes, we would check her labs. She asked if she could spit into a basin. I asked her she had a sore throat and she denied a sore throat or cold symptoms. She immediately started stating "I'm going to go home, I'm going to go home." The patient did sign AMA paperwork and left the facility. I was unable to complete a physical exam. EKG EKG [] Radiology/Procedures Radiology/Procedures [] Course & Med Decision Making Course & Med Decision Making Pertinent Labs and Imaging studies reviewed. (See chart for details) [] Dragon Disclaimer Dragon Disclaimer This electronic medical record was generated, in whole or in part, using a voice recognition dictation system. Departure Departure Impression: Primary Impression: Vaginal bleeding during Additional Impression: Left against medical advice Disposition: 07 AGAINST MEDICAL ADVICE Referrals: NO PCP (PCP) Problem Qualifiers FRANCO ROBISON APRN Dec 17, 2018 15:19
== END 2018-12-17 15:16 | disposition left against medical advice (07) ==
LOC: ER 15:01
DX: O20.8 Other hemorrhage in early pregnancy (principal); Z3A.12 12 weeks gestation of pregnancy; Z53.21 Procedure and treatment not carried out due to patient leaving prior to being seen by health care provider

== ENCOUNTER 2018-12-21 10:38 | Emergency (ER) | payer SELFPAY ==
[~2018-12-21] VITALS: Ht 172.7 cm; Wt 59.4 kg
[2018-12-21 10:50] VITALS: BP 124/73
[2018-12-21 11:03] LABS: BILIRUBIN,URINE NEGATIVE (NEG); CLARITY,URINE CLEAR; COLOR,URINE YELLOW; NITRITE,URINE NEGATIVE (NEG); PROTEIN,URINE NEGATIVE (NEG-TRACE); UROBILINOGEN,URINE 0.2 mg/dL (0.2 mg/dL)
[2018-12-21 11:14] LABS: SQUAMOUS EPITHELIAL CELL,UR MOD /LPF
[2018-12-21 11:15] LABS: BACTERIA,URINE MODERATE /HPF (0-FEW); RBC,URINE 0 /HPF (0-2)
[2018-12-21 11:50] LABS: BASO % 1 % (0-3); EOS # 0.1 x10^3/uL (0.0-0.7); EOS % 1 % (0-3); HEMOGLOBIN 11.9 g/dL (12.0-15.5); LYMPH % 14 % (24-48); MEAN CORPUSCULAR HEMOGLOBIN 28 pg (25-35); MEAN CORPUSCULAR HGB CONC 33 g/dL (31-37); MEAN CORPUSCULAR VOLUME 86 fL (79-100); MONO # 0.6 x10^3/uL (0.0-1.1); MONO % 9 % (0-9); NEUT # 5.3 x10^3uL (1.8-7.7); NEUT % 76 % (31-73); PLATELET COUNT 211 x10^3/uL (140-400); RED CELL DISTRIBUTION WIDTH 14.3 % (11.5-14.5); WHITE BLOOD COUNT 7.1 x10^3/uL (4.0-11.0)
[2018-12-21 12:10] LABS: AMPHETAMINE/METHAMPHETAMINE NEG (NEG); BARBITURATES NEG (NEG); BENZODIAZEPINES NEG (NEG); CANNABINOIDS NEG (NEG); COCAINE NEG (NEG); METHADONE NEG (NEG); OPIATES NEG (NEG); PHENCYCLIDINE NEG (NEG)
[2018-12-21 12:11] LABS: CALCIUM 9.3 mg/dL (8.5-10.1); CREATININE 0.5 mg/dL (0.6-1.0); GFR 188.5; POTASSIUM 3.2 mmol/L (3.5-5.1)
[2018-12-21 12:16] LABS: ALBUMIN 3.5 g/dL (3.4-5.0); TOTAL BILIRUBIN 0.4 mg/dL (0.2-1.0); TOTAL PROTEIN 7.1 g/dL (6.4-8.2)
--- NOTE | 2018-12-21 12:40 | RAD ---
OB < 14 WKS History: Pelvic pain Comparison: December 13, 2018 Findings: Multiple transabdominal sonographic images of the pelvis are submitted. Uterus measured 14 x 9.9 x 11.1 cm. There is a single intrauterine fetus. anatomy and placenta are poorly visualized at this age of the . [place]-rump length measurement of 6.94 cm corresponds with 13 weeks 1 day. Adjusted ultrasound age is 13 weeks 1 day with estimated delivery date by ultrasound of 06/27/2019. LMP age is 13 weeks 3 days with estimated delivery date of 06/25/2019. There is demonstrable cardiac activity 160 bpm. Amniotic fluid volume is within normal limits. Gestational sac morphology is within normal limits. There is a small focus of hypoechogenicity near the gestational sac on the right anterior closer to the fundus about 0.9 x 0.7 x 1.6 cm, present previously and measures somewhat smaller than previous exam. Right maternal ovary measured 2.7 x 1.8 x 2.8 cm. Left maternal ovary measured 3.2 x 1.6 x 2.3 cm. There is normal low resistance vascularity of the ovaries bilaterally. No significant free fluid is demonstrated. Impression: 1. There is a persistent focus of hypoechogenicity near gestational sac, evidence of subchorionic hemorrhage, measures somewhat smaller than previously. There is a single viable intrauterine fetus. Electronically signed by: Justin Hooper MD (12/21/2018 12:37 PM) [id number]
[2018-12-21] MEDS ORDERED: POTASSIUM CHLORIDE 20 MEQ TABLET.ER. PO ONE (13:00)
--- NOTE | 2018-12-21 13:47 | PHYS DOC ---
Past Medical History Past Medical History: STD, Other Additional Past Medical Histor: heart murmur from FO or tetralogy Past Surgical History: Other Additional Past Surgical Histo: open heart surgery@2months old Alcohol Use: None Drug Use: None Adult General Chief Complaint Chief Complaint: PELVIC PAIN HPI HPI Patient is a 23 year old female 1 para 0 currently 13 weeks presenting to the ED today complaining of mild pelvic pain intermittently for one week. Patient states the pain typically occurs at night. Denies any vaginal bleeding. Denies any nausea vomiting. She states she was supposed to see her OB/ TOUR MANAGER yesterday but she missed the appointment because she slept all day. She states she has already rescheduled the appointment. Denies any urgency, frequency dysuria. Denies any concerns for STDs. Patient will not give me her OB /TOUR MANAGER's name either she states she can not remember it neither can she remember the date she rescheduled her appointment. Off note patient was in the ED on December 13, 2018, December 17, 2018 where she refused to be seen, and December 21, 2018 which is today. Review of Systems Review of Systems Constitutional: Denies fever or chills [] Eyes: Denies change in visual acuity, redness, or eye pain [] HENT: Denies nasal congestion or sore throat [] Respiratory: Denies cough or shortness of breath [] Cardiovascular: No additional information not addressed in HPI [] GI: Reports pelvic pain, denies nausea, vomiting, bloody stools or diarrhea [] : Denies dysuria or hematuria [] Musculoskeletal: Denies back pain or joint pain [] Integument: Denies rash or skin lesions [] Neurologic: Denies headache, focal weakness or sensory changes [] All other systems were reviewed and found to be within normal limits, except as documented in this note. Current Medications Current Medications Current Medications Medications (Trade) Dose Ordered Sig/Andrew Start Time Stop Time Status Last Admin Dose Admin Potassium Chloride (Klor-Con) 40 meq 1X ONCE 12/21/18 13:00 12/21/18 13:01 DC 12/21/18 13:15 40 MEQ Allergies Allergies Allergies Coded Allergies Type Severity Reaction Last Updated Verified No Known Drug Allergies 12/13/16 No Physical Exam Physical Exam Constitutional: Well developed, well nourished, no acute distress, non-toxic appearance. [] HENT: Normocephalic, atraumatic, bilateral external ears normal, oropharynx moist, no oral exudates, nose normal. [] Eyes: PERRLA, EOMI, conjunctiva normal, no discharge. [] Neck: Normal range of motion, no tenderness, supple, no stridor. [] Cardiovascular:Heart rate regular rhythm, no murmur [] Lungs & Thorax: Bilateral breath sounds clear to auscultation [] Abdomen: Bowel sounds normal, soft, no tenderness, no masses, no pulsatile masses. [] Pelvic exam External pelvic appears normal, cervix is visualized, closed, no CMT, no adnexal tenderness, trace amount of clear white discharge in the vaginal vault. Skin: Warm, dry, no erythema, no rash. [] Back: No tenderness, no CVA tenderness. [] Extremities: No tenderness, no cyanosis, no clubbing, ROM intact, no edema. [] Neurologic: Alert and oriented X 3, normal motor function, normal sensory function, no focal deficits noted. [] Psychologic: Affect normal, judgement normal, mood normal. [] Current Patient Data Vital Signs Vital Signs Date Time Temp Pulse Resp B/P (MAP) Pulse Ox O2 Delivery O2 Flow Rate FiO2 12/21/18 10:50 97.9 79 16 124/73 (90) 100 Room Air 97.9 Lab Values Laboratory Tests Test 12/21/18 10:50 12/21/18 10:55 12/21/18 11:40 POC Urine HCG, Qualitative Hcg positive (Negative) Urine Collection Type Unknown Urine Color Yellow Urine Clarity Clear Urine pH 6.0 Urine Specific [place] 1.020 Urine Protein Negative mg/dL (NEG-TRACE) Urine Glucose (UA) Negative mg/dL (NEG) Urine Ketones (Stick) Trace mg/dL (NEG) Urine Blood Negative (NEG) Urine Nitrite Negative (NEG) Urine Bilirubin Negative (NEG) Urine Urobilinogen Dipstick 0.2 mg/dL (0.2 mg/dL) Urine Leukocyte Esterase Trace (NEG) Urine RBC 0 /HPF (0-2) Urine WBC 5-10 /HPF (0-4) Urine Squamous Epithelial Cells Mod /LPF Urine Bacteria Moderate /HPF (0-FEW) Urine Mucus Slight /LPF Urine Opiates Screen Neg (NEG) Urine Methadone Screen Neg (NEG) Urine Barbiturates Neg (NEG) Urine Phencyclidine Screen Neg (NEG) Urine Amphetamine/Methamphetamine Neg (NEG) Urine Benzodiazepines Screen Neg (NEG) Urine Cocaine Screen Neg (NEG) Urine Cannabinoids Screen Neg (NEG) Urine Ethyl Alcohol Neg (NEG) White Blood Count 7.1 x10^3/uL (4.0-11.0) Red Blood Count 4.20 x10^6/uL (3.50-5.40) Hemoglobin 11.9 g/dL (12.0-15.5) L Hematocrit 36.0 % (36.0-47.0) Mean Corpuscular Volume 86 fL (79-100) Mean Corpuscular Hemoglobin 28 pg (25-35) Mean Corpuscular Hemoglobin Concent 33 g/dL (31-37) Red Cell Distribution Width 14.3 % (11.5-14.5) Platelet Count 211 x10^3/uL (140-400) Neutrophils (%) (Auto) 76 % (31-73) H Lymphocytes (%) (Auto) 14 % (24-48) L Monocytes (%) (Auto) 9 % (0-9) Eosinophils (%) (Auto) 1 % (0-3) Basophils (%) (Auto) 1 % (0-3) Neutrophils # (Auto) 5.3 x10^3uL (1.8-7.7) Lymphocytes # (Auto) 1.0 x10^3/uL (1.0-4.8) Monocytes # (Auto) 0.6 x10^3/uL (0.0-1.1) Eosinophils # (Auto) 0.1 x10^3/uL (0.0-0.7) Basophils # (Auto) 0.0 x10^3/uL (0.0-0.2) Maternal Serum HCG Beta Subunit 040142 mIU/mL (0-5) H Sodium Level 135 mmol/L (136-145) L Potassium Level 3.2 mmol/L (3.5-5.1) L Chloride Level 99 mmol/L (98-107) Carbon Dioxide Level 24 mmol/L (21-32) Anion Gap 12 (6-14) Blood Urea Nitrogen 7 mg/dL (7-20) Creatinine 0.5 mg/dL (0.6-1.0) L Estimated GFR (Cockcroft-Gault) 188.5 BUN/Creatinine Ratio 14 (6-20) Glucose Level 89 mg/dL (70-99) Calcium Level 9.3 mg/dL (8.5-10.1) Total Bilirubin 0.4 mg/dL (0.2-1.0) Aspartate Amino Transferase (AST) 8 U/L (15-37) L Alanine Aminotransferase (ALT) 9 U/L (14-59) L Alkaline Phosphatase 47 U/L (46-116) Total Protein 7.1 g/dL (6.4-8.2) Albumin 3.5 g/dL (3.4-5.0) Albumin/Globulin Ratio 1.0 (1.0-1.7) Ethyl Alcohol Level < 10 mg/dL (0-10) Laboratory Tests 12/21/18 11:40 Laboratory Tests 12/21/18 11:40 EKG EKG [] Radiology/Procedures Radiology/Procedures []PROCEDURE: OB < 14 WKS OB < 14 WKS History: Pelvic pain Comparison: December 13, 2018 Findings: Multiple transabdominal sonographic images of the pelvis are submitted. Uterus measured 14 x 9.9 x 11.1 cm. There is a single intrauterine fetus. anatomy and placenta are poorly visualized at this age of the . [place]-rump length measurement of 6.94 cm corresponds with 13 weeks 1 day. Adjusted ultrasound age is 13 weeks 1 day with estimated delivery date by ultrasound of 06/27/2019. LMP age is 13 weeks 3 days with estimated delivery date of 06/25/2019. There is demonstrable cardiac activity 160 bpm. Amniotic fluid volume is within normal limits. Gestational sac morphology is within normal limits. There is a small focus of hypoechogenicity near the gestational sac on the right anterior closer to the fundus about 0.9 x 0.7 x 1.6 cm, present previously and measures somewhat smaller than previous exam. Right maternal ovary measured 2.7 x 1.8 x 2.8 cm. Left maternal ovary measured 3.2 x 1.6 x 2.3 cm. There is normal low resistance vascularity of the ovaries bilaterally. No significant free fluid is demonstrated. Impression: 1. There is a persistent focus of hypoechogenicity near gestational sac, evidence of subchorionic hemorrhage, measures somewhat smaller than previously. There is a single viable intrauterine fetus. Electronically signed by: Gus Puritt MD (12/21/2018 12:37 PM) [id number] DICTATED and SIGNED BY: GUS PRUITT MD DATE: 12/21/18 0361 Course & Med Decision Making Course & Med Decision Making Pertinent Labs and Imaging studies reviewed. (See chart for details) This is a 23-year-old female patient 1 para 0 currently 13 weeks presenting to the ED today with pelvic pain for week. Patient was seen in the ED on December 13, 2018, was noted to have a subchorionic hemorrhage. We did another ultrasound today which shows there is a subchorionic hemorrhage which has improved in size. It's smaller. Her lab work is negative for any acute findings. Off not patient also states she missed her appointment yesterday with the STOCK HANDLER FLOORPERSON because she slept all day. Patient does not remember the name of her STOCK HANDLER FLOORPERSON either. I mentioned Dr. Morales by she seemed not familiar with name but states maybe. She does not have any vaginal bleeding. She has slept throughout her visit in the ED today. She is in no distress. She states she already has another appointment with her own STOCK HANDLER FLOORPERSON and will follow-up in a couple days. Talked to her about pelvic rest. Recommended Tylenol for pain. She states her pain is very minor and she does not take anything for the pain. She herself is requesting to be discharged. She states she has an appointment with her OBGYN and the information is at home. Given precautions and discharged in stable condition. Dragon Disclaimer Dragon Disclaimer This electronic medical record was generated, in whole or in part, using a voice recognition dictation system. Departure Departure Impression: Primary Impression: Subchorionic hematoma in second trimester Additional Impression: Abdominal pain in Disposition: 01 HOME, SELF-CARE Referrals: NO PCP (PCP) KATHRIN MORALES MD Please follow up as soon as you can Patient Instructions: Abdominal Pain During , Subchorionic Hematoma Additional Instructions: You were evaluated in the emergency room for ongoing abdominal pain. We highly recommend you contact your STOCK HANDLER FLOORPERSON and set up a follow-up appointment. Please ensure you follow-up. We recommend pelvic rest, no sex, no strenuous activities. This should be observed until seen by the OB Problem Qualifiers Primary Impression: Subchorionic hematoma in second trimester Fetus number: single or unspecified fetus Qualified Codes: O41.8X20 - Other specified disorders of amniotic fluid and membranes, second trimester, not applicable or unspecified; O46.8X2 - Other antepartum hemorrhage, second trimester Additional Impression: Abdominal pain in Trimester: second trimester Qualified Codes: O26.892 - Other specified related conditions, second trimester; R10.9 - Unspecified abdominal pain YONY HOEP APRN Dec 21, 2018 13:47
== END 2018-12-21 13:58 | disposition home or self-care (01) ==
LOC: ER 10:38
DX: O41.8X20 Other specified disorders of amniotic fluid and membranes, second trimester, not applicable or unspecified (principal); O46.8X2 Other antepartum hemorrhage, second trimester; R10.9 Unspecified abdominal pain; Z3A.13 13 weeks gestation of pregnancy
CPT/HCPCS: 36415; 76801; 80053; 80307; 81001; 81025; 84702; 85025; 87086; 99285; G0480

== ENCOUNTER 2019-02-07 14:48 | Emergency (ER) | payer SELFPAY ==
[~2019-02-07] VITALS: Ht 172.7 cm; Wt 59.4 kg
[2019-02-07 14:58] VITALS: BP 114/59
--- NOTE | 2019-02-07 15:35 | PHYS DOC ---
Past Medical History Past Medical History: STD, Other Additional Past Medical Histor: heart murmur from FO or tetralogy Past Surgical History: Other Additional Past Surgical Histo: open heart surgery@2months old Alcohol Use: None Drug Use: None Adult General Chief Complaint Chief Complaint: BREAST PROBLEM HPI HPI Patient is a 23 year old female who presents to the ED today complaining of an abscess on the left breast that began 3-4 days ago. Patient states around December 27, 2018 she had an elective she states after that she developed some breast milk. She states she did not stimulate her breast after the the breast milk stopped afew days later. She states 4 days ago she noted redness and swelling to the left breast denies any fever denies any breast milk right now. States states tetanus is up-to-date. She complaining of tenderness to this region. She states the breast is also painful rating the pain as mild worse on touching it. She states she's been applying warm compresses to the area with some relief. Review of Systems Review of Systems Constitutional: Denies fever or chills [] Musculoskeletal: Denies back pain or joint pain [] Integument: Reports left breast abscess Neurologic: Denies headache, focal weakness or sensory changes [] All other systems were reviewed and found to be within normal limits, except as documented in this note. Allergies Allergies Allergies Coded Allergies Type Severity Reaction Last Updated Verified No Known Drug Allergies 12/13/16 No Physical Exam Physical Exam Constitutional: Well developed, well nourished, no acute distress, non-toxic appearance. [] HENT: Normocephalic, atraumatic, bilateral external ears normal, oropharynx moist, no oral exudates, nose normal. [] Eyes: PERRLA, EOMI, conjunctiva normal, no discharge. [] Neck: Normal range of motion, no tenderness, supple, no stridor. [] Cardiovascular:Heart rate regular rhythm, no murmur [] Lungs & Thorax: Bilateral breath sounds clear to auscultation [] Abdomen: Bowel sounds normal, soft, no tenderness, no masses, no pulsatile masses. [] Skin: Left breast at around 1500 position with a palpable small mass consistent/suspicious of an abscess there is cellulitis on the exterior part of the breast around this region with warmth and tenderness on palpation to this region. Nipples are not retracted, +2 left axilla lymph node. No drainage from the breast Back: No tenderness, no CVA tenderness. [] Extremities: No tenderness, no cyanosis, no clubbing, ROM intact, no edema. [] Neurologic: Alert and oriented X 3, normal motor function, normal sensory function, no focal deficits noted. [] Psychologic: Affect normal, judgement normal, mood normal. [] Current Patient Data Vital Signs Vital Signs Date Time Temp Pulse Resp B/P (MAP) Pulse Ox O2 Delivery O2 Flow Rate FiO2 02/07/19 14:58 98.7 92 20 114/59 (77) 100 Room Air 98.7 EKG EKG [] Radiology/Procedures Radiology/Procedures [] Course & Med Decision Making Course & Med Decision Making Pertinent Labs and Imaging studies reviewed. (See chart for details) This is a 23-year-old female patient presenting to the ED today with an abscess and cellulitis of the left breast. Symptoms began 4 days ago. Off not patient had an around December 27. No drainage from the nipples. Tetanus up-to-date. Will be discharged with cephalexin and Bactrim. Warm compresses recommended to the area. Follow-up with OB in 2 weeks. Dragon Disclaimer Dragon Disclaimer This electronic medical record was generated, in whole or in part, using a voice recognition dictation system. Departure Departure Impression: Primary Impression: Abscess of breast Additional Impression: Cellulitis of left breast Disposition: 01 HOME, SELF-CARE Condition: STABLE Referrals: NO PCP (PCP) KATHRIN BRO MD follow up in 2 weeks Patient Instructions: Abscess, Cellulitis, [id number] Additional Instructions: You have abscess and cellulitis of the breast. Continue applying warm compresses to the area. Complete your prescribed antibiotics. Follow-up with your doctor in 2 weeks. You can also see the provided HYDROMETALLURGICAL ENGINEER. Scripts Sulfamethoxazole/Trimethoprim (BACTRIM DS TABLET) 1 Each Tablet 1 TAB PO BID, #20 TAB Prov: YONY HOPE APRN 02/07/19 Cephalexin (CEPHALEXIN) 500 Mg Tablet 1 TAB PO QID, #40 TAB Prov: YONY HOPE [employer] 02/07/19 Problem Qualifiers YONY HOPE APRN Feb 07, 2019 15:35
[2019-02-07] MEDS ORDERED: SULF1TAB24 PO (15:42)
[2019-02-07] MEDS ORDERED: CEPH500T PO (15:42)
== END 2019-02-07 15:49 | disposition home or self-care (01) ==
LOC: ER 14:48
DX: N61.1 Abscess of the breast and nipple (principal)
CPT/HCPCS: 99283

== ENCOUNTER 2019-07-10 14:24 | Emergency (ER) | payer SELFPAY ==
[~2019-07-10] VITALS: Ht 172.7 cm; Wt 61.2 kg
[~2019-07-10 14:24] MED LIST changes: +MUPI22OI2 TP; +PRED20TA PO
[2019-07-10 14:30] VITALS: BP 111/61
--- NOTE | 2019-07-10 15:54 | PHYS DOC ---
Past Medical History Past Medical History: STD, Other Additional Past Medical Histor: heart murmur from FO or tetralogy Past Surgical History: Other Additional Past Surgical Histo: open heart surgery@2months old Alcohol Use: None Drug Use: None Adult General Chief Complaint Chief Complaint: DENTAL PROBLEM HPI HPI Patient is a 23 year old female who presents to the ED today reporting she discovered some lesions on her tongue today. Patient denies any other symptoms. Review of Systems Review of Systems Constitutional: Denies fever or chills [] Eyes: Denies change in visual acuity, redness, or eye pain [] HENT: Reports lesions on the tongue. Denies nasal congestion or sore throat [] Respiratory: Denies cough or shortness of breath [] Cardiovascular: No additional information not addressed in HPI [] GI: Denies abdominal pain, nausea, vomiting, bloody stools or diarrhea [] : Denies dysuria or hematuria [] Musculoskeletal: Denies back pain or joint pain [] Integument: Denies rash or skin lesions [] Neurologic: Denies headache, focal weakness or sensory changes [] All other systems were reviewed and found to be within normal limits, except as documented in this note. Allergies Allergies Allergies Coded Allergies Type Severity Reaction Last Updated Verified No Known Drug Allergies 12/13/16 No Physical Exam Physical Exam Constitutional: Well developed, well nourished, no acute distress, non-toxic appearance. [] HENT: Normocephalic, atraumatic, bilateral external ears normal, oropharynx moist, no oral exudates, nose normal. [] Patient noted to have normal papillae on her tongue. Eyes: PERRLA, EOMI, conjunctiva normal, no discharge. [] Neck: Normal range of motion, no tenderness, supple, no stridor. [] Cardiovascular:Heart rate regular rhythm, no murmur [] Lungs & Thorax: Bilateral breath sounds clear to auscultation [] Abdomen: Bowel sounds normal, soft, no tenderness, no masses, no pulsatile masses. [] Skin: Warm, dry, no erythema, no rash. [] Back: No tenderness, no CVA tenderness. [] Extremities: No tenderness, no cyanosis, no clubbing, ROM intact, no edema. [] Neurologic: Alert and oriented X 3, normal motor function, normal sensory function, no focal deficits noted. [] Psychologic: Affect normal, judgement normal, mood normal. [] EKG EKG [] Radiology/Procedures Radiology/Procedures [] Course & Med Decision Making Course & Med Decision Making Pertinent Labs and Imaging studies reviewed. (See chart for details) This is a 23-year-old female patient who presents to the ED today to be e valuated after noticing she has papillae on her tongue. Patient was reassured that this is a normal anatomical feature of the tongue on some people. She has no other complaints. MSE was done per hospital protocol and she left Dragon Disclaimer Dragon Disclaimer This electronic medical record was generated, in whole or in part, using a voice recognition dictation system. Departure Departure Impression: Primary Impression: Hypertrophy, papillae, tongue Disposition: 07 AGAINST MEDICAL ADVICE Condition: STABLE Referrals: NO PCP (PCP) YONY HOPE APRN Jul 10, 2019 15:54
== END 2019-07-10 15:35 | disposition left against medical advice (07) ==
LOC: ER 14:24
DX: K14.3 Hypertrophy of tongue papillae (principal); K08.9 Disorder of teeth and supporting structures, unspecified; A64 Unspecified sexually transmitted disease; Z95.1 Presence of aortocoronary bypass graft
CPT/HCPCS: 99281

== ENCOUNTER 2019-09-20 20:26 | Emergency (ER) | payer SELFPAY ==
[~2019-09-20] VITALS: Ht 172.7 cm; Wt 61.2 kg
[2019-09-20 20:35] VITALS: BP 116/69
[2019-09-20 20:47] LABS: BILIRUBIN,URINE NEGATIVE (NEG); COLOR,URINE YELLOW; NITRITE,URINE NEGATIVE (NEG); PH,URINE 7.5; PROTEIN,URINE NEGATIVE (NEG-TRACE)
[2019-09-20 20:53] LABS: CLARITY,URINE CLEAR
[2019-09-20 20:55] LABS: BACTERIA,URINE MOD /HPF (0-FEW); RBC,URINE 0 /HPF (0-2); SQUAMOUS EPITHELIAL CELL,UR MOD /LPF; WBC,URINE OCC /HPF (0-4)
[2019-09-20] MEDS ORDERED: ONDA4TAB12 PO (21:27)
--- NOTE | 2019-09-20 21:28 | PHYS DOC ---
Past Medical History Past Medical History: STD, Other Additional Past Medical Histor: heart murmur from FO or tetralogy Past Surgical History: Other Additional Past Surgical Histo: open heart surgery@2months old Alcohol Use: None Drug Use: None Adult General Chief Complaint Chief Complaint: NAUSEA/VOMITING/[facility] HPI Patient is a 23 year old female with no significant medical history who presents to the ED today complaining of episodes of nausea and vomiting intermittently for week. Patient is laughing and smiling about her symptoms. She states the last time she had the symptoms was 2 days ago. She states occasionally she gets abdominal cramping. Denies any chance she is recommended. She rates her pain at 4 out of 10. Denies any exacerbating or relieving factors to her symptoms. Denies any concerns for STDs. Review of Systems Review of Systems Constitutional: Denies fever or chills [] Eyes: Denies change in visual acuity, redness, or eye pain [] HENT: Denies nasal congestion or sore throat [] Respiratory: Denies cough or shortness of breath [] Cardiovascular: No additional information not addressed in HPI [] GI: Reports abdominal cramping with nausea and vomiting, denies diarrhea : Denies dysuria or hematuria [] Musculoskeletal: Denies back pain or joint pain [] Integument: Denies rash or skin lesions [] Neurologic: Denies headache, focal weakness or sensory changes [] All other systems were reviewed and found to be within normal limits, except as documented in this note. Allergies Allergies Allergies Coded Allergies Type Severity Reaction Last Updated Verified No Known Drug Allergies 12/13/16 No Physical Exam Physical Exam Constitutional: Well developed, well nourished, no acute distress, non-toxic appearance. [] HENT: Normocephalic, atraumatic, bilateral external ears normal, oropharynx moist, no oral exudates, nose normal. [] Eyes: PERRLA, EOMI, conjunctiva normal, no discharge. [] Neck: Normal range of motion, no tenderness, supple, no stridor. [] Cardiovascular:Heart rate regular rhythm, no murmur [] Lungs & Thorax: Bilateral breath sounds clear to auscultation [] Abdomen: Bowel sounds normal, soft, no tenderness, no masses, no pulsatile masses. [] Skin: Warm, dry, no erythema, no rash. [] Back: No tenderness, no CVA tenderness. [] Extremities: No tenderness, no cyanosis, no clubbing, ROM intact, no edema. [] Neurologic: Alert and oriented X 3, normal motor function, normal sensory function, no focal deficits noted. [] Psychologic: Patient is laughing and smiling about her symptoms. Current Patient Data Vital Signs Vital Signs Date Time Temp Pulse Resp B/P (MAP) Pulse Ox O2 Delivery O2 Flow Rate FiO2 09/20/19 20:35 98.6 83 19 116/69 (85) 97 Room Air 98.6 Lab Values Laboratory Tests Test 09/20/19 20:34 09/20/19 20:35 POC Urine HCG, Qualitative Hcg negative (Negative) Urine Collection Type Unknown Urine Color Yellow Urine Clarity Clear Urine pH 7.5 Urine Specific [place] 1.020 Urine Protein Negative mg/dL (NEG-TRACE) Urine Glucose (UA) Negative mg/dL (NEG) Urine Ketones (Stick) Negative mg/dL (NEG) Urine Blood Negative (NEG) Urine Nitrite Negative (NEG) Urine Bilirubin Negative (NEG) Urine Urobilinogen Dipstick 1.0 mg/dL (0.2 mg/dL) Urine Leukocyte Esterase Negative (NEG) Urine RBC 0 /HPF (0-2) Urine WBC Occ /HPF (0-4) Urine Squamous Epithelial Cells Mod /LPF Urine Bacteria Mod /HPF (0-FEW) Urine Mucus Mod /LPF EKG EKG [] Radiology/Procedures Radiology/Procedures [] Course & Med Decision Making Course & Med Decision Making Pertinent Labs and Imaging studies reviewed. (See chart for details) This is a 23-year-old female patient presenting to the ED today with complaints of abdominal cramping, nausea and vomiting intermittently for week, patient is in no distress laughing and playing around. Negative urine hCG, urine analysis is negative for infection. Discharge her with Zofran. Instructed her to take Tylenol/Motrin as needed for pain. Dragon Disclaimer Dragon Disclaimer This electronic medical record was generated, in whole or in part, using a voice recognition dictation system. Departure Departure Impression: Primary Impression: Nausea and vomiting Additional Impression: Abdominal pain Disposition: 01 HOME, SELF-CARE Condition: STABLE Referrals: NO PCP (PCP) follow up with your doctor in 1-2 weeks Patient Instructions: Nausea and Vomiting, [id number] Additional Instructions: You were evaluated in the emergency room, we wrote a prescription for Zofran, take it as needed for nausea vomiting. You can take Tylenol or Motrin for pain. Please follow-up with your own doctor in 1-2 weeks Scripts Ondansetron (ONDANSETRON ODT) 4 Mg Tab.rapdis 1 TAB PO PRN Q6-8HRS, #16 TAB Prov: YONY HOPE APRN 09/20/19 Problem Qualifiers Primary Impression: Nausea and vomiting Vomiting type: unspecified Vomiting Intractability: unspecified Qualified Codes: R11.2 - Nausea with vomiting, unspecified Additional Impression: Abdominal pain Abdominal location: unspecified location Qualified Codes: R10.9 - Unspecified abdominal pain YONY HOPE APRN Sep 20, 2019 21:28
== END 2019-09-20 21:31 | disposition home or self-care (01) ==
LOC: ER 20:26
DX: R11.2 Nausea with vomiting, unspecified (principal); R10.9 Unspecified abdominal pain
CPT/HCPCS: 81001; 81025; 99283

== ENCOUNTER 2019-10-20 22:53 | Emergency (ER) | payer SELFPAY ==
[~2019-10-20] VITALS: Ht 172.7 cm; Wt 65.9 kg
[~2019-10-20 22:53] MED LIST changes: +ONDA4TAB12 PO
--- NOTE | 2019-10-20 23:28 | PHYS DOC ---
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 She describes the pain as tightness. 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 She denies any nausea, vomiting. States nothing makes her chest pain worse, nothing makes her pain better. She denies any headache or visual changes. Current blood pressure 125/73 saturations 100% on room air, heart rate 73. EKG is reviewed with evidence of sinus rhythm left axis deviation, she has occasional PVC appreciated on examination. Interpretation time 2311. LMP 09/25 Review of Systems Review of Systems Constitutional: Denies fever or chills [] Eyes: Denies change in visual acuity, redness, or eye pain [] HENT: Denies nasal congestion or sore throat [] Respiratory: Denies cough or shortness of breath [] Cardiovascular: No additional information not addressed in HPI [] GI: Denies abdominal pain, nausea, vomiting, bloody stools or diarrhea [] : Denies dysuria or hematuria [] Musculoskeletal: Denies back pain or joint pain [] Integument: Denies rash or skin lesions [] Neurologic: Denies headache, focal weakness or sensory changes [] Endocrine: Denies polyuria or polydipsia [] All other systems were reviewed and found to be within normal limits, except as documented in this note. Current Medications Current Medications Current Medications Medications (Trade) Dose Ordered Sig/Andrew Start Time Stop Time Status Last Admin Dose Admin Aspirin (Children'S Aspirin) 324 mg 1X ONCE 10/20/19 23:45 10/20/19 23:46 DC 10/20/19 23:33 324 MG Ketorolac Tromethamine (Toradol 30mg Vial) 30 mg 1X ONCE 10/21/19 00:45 10/21/19 00:46 UNV Allergies Allergies Allergies Coded Allergies Type Severity Reaction Last Updated Verified No Known Drug Allergies 12/13/16 No Physical Exam Physical Exam Constitutional: Well developed, well nourished, no acute distress, non-toxic appearance. [] HENT: Normocephalic, atraumatic, bilateral external ears normal, oropharynx moist, no oral exudates, nose normal. [] Eyes: PERRLA, EOMI, conjunctiva normal, no discharge. [] Neck: Normal range of motion, no tenderness, supple, no stridor. [] Cardiovascular:Heart rate regular rhythm, no murmur [] Lungs & Thorax: Bilateral breath sounds clear to auscultation [] Abdomen: Bowel sounds normal, soft, no tenderness, no masses, no pulsatile masses. [] Skin: Warm, dry, no erythema, no rash. [] Back: No tenderness, no CVA tenderness. [] Extremities: No tenderness, no cyanosis, no clubbing, ROM intact, no edema. [] Neurologic: Alert and oriented X 3, normal motor function, normal sensory function, no focal deficits noted. [] Psychologic: Affect normal, judgement normal, mood normal. [] Current Patient Data Vital Signs Vital Signs Date Time Temp Pulse Resp B/P (MAP) Pulse Ox O2 Delivery O2 Flow Rate FiO2 10/20/19 23:03 97.9 73 25 125/73 (90) 100 Room Air 97.9 Lab Values Laboratory Tests Test 10/20/19 23:15 10/20/19 23:34 10/20/19 23:44 White Blood Count 5.3 x10^3/uL (4.0-11.0) Red Blood Count 4.79 x10^6/uL (3.50-5.40) Hemoglobin 12.6 g/dL (12.0-15.5) Hematocrit 39.1 % (36.0-47.0) Mean Corpuscular Volume 82 fL (79-100) Mean Corpuscular Hemoglobin 26 pg (25-35) Mean Corpuscular Hemoglobin Concent 32 g/dL (31-37) Red Cell Distribution Width 16.8 % (11.5-14.5) H Platelet Count 238 x10^3/uL (140-400) Neutrophils (%) (Auto) 41 % (31-73) Lymphocytes (%) (Auto) 46 % (24-48) Monocytes (%) (Auto) 9 % (0-9) Eosinophils (%) (Auto) 2 % (0-3) Basophils (%) (Auto) 2 % (0-3) Neutrophils # (Auto) 2.2 x10^3/uL (1.8-7.7) Lymphocytes # (Auto) 2.4 x10^3/uL (1.0-4.8) Monocytes # (Auto) 0.5 x10^3/uL (0.0-1.1) Eosinophils # (Auto) 0.1 x10^3/uL (0.0-0.7) Basophils # (Auto) 0.1 x10^3/uL (0.0-0.2) D-Dimer (Sonia) < 0.27 ug/mlFEU Sodium Level 141 mmol/L (136-145) Potassium Level 3.6 mmol/L (3.5-5.1) Chloride Level 107 mmol/L (98-107) Carbon Dioxide Level 27 mmol/L (21-32) Anion Gap 7 (6-14) Blood Urea Nitrogen 14 mg/dL (7-20) Creatinine 0.8 mg/dL (0.6-1.0) Estimated GFR (Cockcroft-Gault) 108.5 BUN/Creatinine Ratio 18 (6-20) Glucose Level 81 mg/dL (70-99) Calcium Level 9.1 mg/dL (8.5-10.1) Magnesium Level 1.8 mg/dL (1.8-2.4) Total Bilirubin 0.4 mg/dL (0.2-1.0) Aspartate Amino Transferase (AST) 12 U/L (15-37) L Alanine Aminotransferase (ALT) 13 U/L (14-59) L Alkaline Phosphatase 67 U/L (46-116) Troponin I Quantitative < 0.017 ng/mL (0.000-0.055) Total Protein 7.5 g/dL (6.4-8.2) Albumin 4.1 g/dL (3.4-5.0) Albumin/Globulin Ratio 1.2 (1.0-1.7) Urine Collection Type Unknown Urine Color Yellow Urine Clarity Clear Urine pH 6.5 Urine Specific Sharon 1.025 Urine Protein Negative mg/dL (NEG-TRACE) Urine Glucose (UA) Negative mg/dL (NEG) Urine Ketones (Stick) Negative mg/dL (NEG) Urine Blood Negative (NEG) Urine Nitrite Negative (NEG) Urine Bilirubin Negative (NEG) Urine Urobilinogen Dipstick 1.0 mg/dL (0.2 mg/dL) Urine Leukocyte Esterase Negative (NEG) Urine RBC 0 /HPF (0-2) Urine WBC Occ /HPF (0-4) Urine Squamous Epithelial Cells Many /LPF Urine Bacteria Few /HPF (0-FEW) Urine Mucus Mod /LPF Urine Test Negative (NEG) POC Urine HCG, Qualitative Hcg negative (Negative) Laboratory Tests 10/20/19 23:15 Laboratory Tests 10/20/19 23:15 EKG EKG Patient time 22/11/10, normal sinus rhythm, left axis deviation, occasional PVC, heart rate 81, no STEMI[] Radiology/Procedures Radiology/Procedures wet read 0048 - chest xray without acute consolidation/effusion[] Course & Med Decision Making Course & Med Decision Making Pertinent Labs and Imaging studies reviewed. (See chart for details) []24-year-old female presents to emergency Department complaints of chest pain, ankle swelling. She describes the pain as tightness. 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 She denies any nausea, vomiting. States nothing makes her chest pain worse, nothing makes her pain better. She denies any headache or visual changes. Current blood pressure 125/73 saturations 100% on room air, heart rate 73. EKG is reviewed with evidence of sinus rhythm left axis deviation, she has occasional PVC appreciated on examination. Interpretation time 2311. LMP 09/25 UCG negative/UAD negative Trop negative, d-dimer negative No acute process identified EKG without acute process Recommend follow up with PCP as outpatient Toradol 30mg IV Dragon Disclaimer Dragon Disclaimer This electronic medical record was generated, in whole or in part, using a voice recognition dictation system. Departure Departure Impression: Primary Impression: Chest pain, musculoskeletal Disposition: HOME, SELF-CARE Condition: IMPROVED Referrals: NO PCP (PCP) Patient Instructions: Musculoskeletal Pain Additional Instructions: Labs reviewed and unremarkable EKG without acute changes Troponin (heart enzyme) - negative Recommend follow up with PCP as needed ARNOL BOLAÑOS MD Oct 20, 2019 23:27
--- NOTE | 2019-10-20 23:29 | EKG ---
[facility] [address] [place] [address] Test Date: 2019-10-20 Test Time: 23:07:36 Pat Name: LAN ROSALES Department: Room: Gender: F Patient Care Manager: : 1995 Requested By: ARNOL BOLAÑOS Order Number: [id number] Reading MD: Measurements Intervals Roosevelt Rate: 81 P: 38 NM: 158 QRS: -39 QRSD: 112 T: 26 QT: 406 QTc: 472 Interpretive Statements SINUS RHYTHM VENTRICULAR PREMATURE COMPLEX(ES) ABNORMAL LEFT AXIS DEVIATION LEFT ANTERIOR FASCICULAR BLOCK INCOMPLETE RIGHT BUNDLE BRANCH BLOCK QRS(T) CONTOUR ABNORMALITY CONSIDER INFERIOR MYOCARDIAL DAMAGE T ABNORMALITY IN ANTERIOR LEADS PROLONGED QT ABNORMAL ECG RI6.01 No previous ECG available for comparison
[2019-10-20 23:30] LABS: BASO # 0.1 x10^3/uL (0.0-0.2); BASO % 2 % (0-3); EOS # 0.1 x10^3/uL (0.0-0.7); EOS % 2 % (0-3); HEMATOCRIT 39.1 % (36.0-47.0); HEMOGLOBIN 12.6 g/dL (12.0-15.5); LYMPH # 2.4 x10^3/uL (1.0-4.8); LYMPH % 46 % (24-48); MEAN CORPUSCULAR HEMOGLOBIN 26 pg (25-35); MEAN CORPUSCULAR HGB CONC 32 g/dL (31-37); MEAN CORPUSCULAR VOLUME 82 fL (79-100); MONO # 0.5 x10^3/uL (0.0-1.1); MONO % 9 % (0-9); NEUT # 2.2 x10^3/uL (1.8-7.7); NEUT % 41 % (31-73); PLATELET COUNT 238 x10^3/uL (140-400); RED BLOOD COUNT 4.79 x10^6/uL (3.50-5.40); RED CELL DISTRIBUTION WIDTH 16.8 % (11.5-14.5); WHITE BLOOD COUNT 5.3 x10^3/uL (4.0-11.0)
[2019-10-20 23:38] LABS: CALCIUM 9.1 mg/dL (8.5-10.1); CREATININE 0.8 mg/dL (0.6-1.0); GFR 108.5; POTASSIUM 3.6 mmol/L (3.5-5.1)
[2019-10-20] MEDS ORDERED: ASPIRIN CHEWABLE 81 MG TABLET. PO ONE (23:45)
[2019-10-20 23:51] LABS: BILIRUBIN,URINE NEGATIVE (NEG); CLARITY,URINE CLEAR; COLOR,URINE YELLOW; NITRITE,URINE NEGATIVE (NEG); PH,URINE 6.5; PROTEIN,URINE NEGATIVE (NEG-TRACE)
[2019-10-20 23:53] LABS: SQUAMOUS EPITHELIAL CELL,UR MANY /LPF
[2019-10-20 23:54] LABS: BACTERIA,URINE FEW /HPF (0-FEW); RBC,URINE 0 /HPF (0-2); WBC,URINE OCC /HPF (0-4)
[2019-10-20 23:55] LABS: U PREG PATIENT NEGATIVE (NEG)
[2019-10-21 00:03] LABS: ALBUMIN 4.1 g/dL (3.4-5.0); ALBUMIN/GLOBULIN RATIO 1.2 (1.0-1.7); MAGNESIUM 1.8 mg/dL (1.8-2.4); TOTAL BILIRUBIN 0.4 mg/dL (0.2-1.0); TOTAL PROTEIN 7.5 g/dL (6.4-8.2)
[2019-10-21 00:30] VITALS: BP 162/68
[2019-10-21] MEDS ORDERED: KETOROLAC 30 MG/ML VIAL. IVP ONE (01:00)
--- NOTE | 2019-10-21 08:02 | RAD ---
Chest AP portable at 2324: Reason for examination: Chest pain. Comparison is made to previous study dated 09/17/2013. The heart size is stable. Mediastinum is unremarkable. Lung lee are clear. No acute bony abnormalities are seen. IMPRESSION: No acute cardiopulmonary disease evident. Electronically signed by: Jennifer Guardado MD (10/21/2019 8:00 AM) [id number]
== END 2019-10-21 01:13 | disposition home or self-care (01) ==
LOC: ER 22:53
DX: R07.89 Other chest pain (principal); R60.0 Localized edema; Z98.890 Other specified postprocedural states; Z79.82 Long term (current) use of aspirin
CPT/HCPCS: 36415; 71045; 80053; 81001; 81025; 83735; 84484; 85025; 85379; 93005; 96374; 99285; J1885

== ENCOUNTER 2019-12-04 20:05 | Emergency (ER) | payer SELFPAY ==
[~2019-12-04] VITALS: Ht 172.7 cm; Wt 58.6 kg
[2019-12-04 20:25] VITALS: BP 113/57
--- NOTE | 2019-12-04 20:25 | PHYS DOC ---
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 She denies any dysuria or hematuria or frequency. She has taken no medications including Tylenol or Motrin [id number]. She describes the pain as crampy sensation generalized. Nothing makes pain worse, nothing makes pain better. Review of Systems Review of Systems Constitutional: Denies fever or chills [] Respiratory: Denies cough or shortness of breath [] Cardiovascular: No additional information not addressed in HPI [] GI: + abdominal pain/cramping, no nausea, vomiting, bloody stools or diarrhea [] : Denies dysuria or hematuria [] Musculoskeletal: Denies back pain or joint pain [] Neurologic: Denies headache, focal weakness or sensory changes [] All other systems were reviewed and found to be within normal limits, except as documented in this note. Current Medications Current Medications Current Medications Medications (Trade) Dose Ordered Sig/Andrew Start Time Stop Time Status Last Admin Dose Admin Ketorolac Tromethamine (Toradol Im) 60 mg 1X ONCE 12/04/19 20:30 12/04/19 20:32 DC Allergies Allergies Allergies Coded Allergies Type Severity Reaction Last Updated Verified No Known Drug Allergies 12/13/16 No Physical Exam Physical Exam Constitutional: Well developed, well nourished, no acute distress, non-toxic appearance. [] Cardiovascular:Heart rate regular rhythm, no murmur [] Lungs & Thorax: Bilateral breath sounds clear to auscultation [] Abdomen: Bowel sounds normal, soft, generalized lower abd pain, no masses, no pulsatile masses. [] Skin: Warm, dry, no erythema, no rash. [] Back: No tenderness, no CVA tenderness. [] Extremities: No tenderness, no edema. [] Neurologic: Alert and oriented X 3,no focal deficits noted. [] Psychologic: Affect normal, judgement normal, mood normal. [] Current Patient Data Vital Signs Vital Signs Date Time Temp Pulse Resp B/P (MAP) Pulse Ox O2 Delivery O2 Flow Rate FiO2 12/04/19 20:25 98.2 62 18 113/57 (75) 99 Room Air 98.2 Lab Values Laboratory Tests Test 12/04/19 20:10 12/04/19 20:11 Urine Collection Type Void Urine Color Yellow Urine Clarity Clear Urine pH 6.0 (<5.0-8.0) Urine Specific [place] >=1.030 (1.000-1.030) Urine Protein Negative mg/dL (NEG-TRACE) Urine Glucose (UA) Negative mg/dL (NEG) Urine Ketones (Stick) Trace mg/dL (NEG) Urine Blood Negative (NEG) Urine Nitrite Negative (NEG) Urine Bilirubin Negative (NEG) Urine Urobilinogen Dipstick 1.0 mg/dL (0.2 mg/dL) Urine Leukocyte Esterase Small (NEG) Urine RBC 0 /HPF (0-2) Urine WBC 1-4 /HPF (0-4) Urine Squamous Epithelial Cells Many /LPF Urine Bacteria Many /HPF (0-FEW) Urine Mucus Marked /LPF POC Urine HCG, Qualitative Hcg negative (Negative) Microbiology 12/04/19 Wet Prep - Final, Complete EKG EKG [] Radiology/Procedures Radiology/Procedures [] Course & Med Decision Making Course & Med Decision Making Pertinent Labs and Imaging studies reviewed. (See chart for details) []24-year-old female with no past medical history presents emergency part c omplaints of abdominal cramping x2 days, vaginal bleeding off and on. She denies any dysuria or hematuria or frequency. She has taken no medications including Tylenol or Motrin [id number]. She describes the pain as crampy sensation generalized. Nothing makes pain worse, nothing makes pain better. UAD reviewed - negative Wet prep - + BV/clue cells Toradol IM 60mg Dragon Disclaimer Dragon Disclaimer This electronic medical record was generated, in whole or in part, using a voice recognition dictation system. Departure Departure Impression: Primary Impression: Abdominal pain Additional Impressions: Bacterial vaginosis Concern about STD in female without diagnosis Disposition: 01 HOME, SELF-CARE Condition: STABLE Referrals: NO PCP (PCP) Patient Instructions: Abdominal Pain (Nonspecific), Bacterial Vaginosis, [id number]-[id number] Scripts Metronidazole (FLAGYL) 500 Mg Tablet 1 TAB PO BID, #14 TAB Prov: ARNOL BOLAÑOS MD 12/04/19 Problem Qualifiers Primary Impression: Abdominal pain Abdominal location: lower abdomen, unspecified Qualified Codes: R10.30 - Lower abdominal pain, unspecified ARNOL BOLAÑOS MD Dec 04, 2019 20:25
[2019-12-04] MEDS ORDERED: KETOROLAC 60 MG/2 ML VIAL. IM ONE (20:30)
[2019-12-04 20:32] LABS: BILIRUBIN,URINE NEGATIVE (NEG); CLARITY,URINE CLEAR; COLOR,URINE YELLOW; NITRITE,URINE NEGATIVE (NEG); PROTEIN,URINE NEGATIVE (NEG-TRACE)
[2019-12-04] MEDS ORDERED: METR500T PO (20:39)
[2019-12-04 20:55] LABS: BACTERIA,URINE MANY /HPF (0-FEW); RBC,URINE 0 /HPF (0-2); SQUAMOUS EPITHELIAL CELL,UR MANY /LPF
[2019-12-06 16:09] LABS: GC PROBE Negative (Negative)
== END 2019-12-04 21:08 | disposition home or self-care (01) ==
LOC: ER 20:05
DX: N76.0 Acute vaginitis (principal); B96.89 Other specified bacterial agents as the cause of diseases classified elsewhere; R10.9 Unspecified abdominal pain; N93.9 Abnormal uterine and vaginal bleeding, unspecified; Z98.890 Other specified postprocedural states
CPT/HCPCS: 81001; 81025; 87086; 87491; 87591; 99283; Q0111

== ENCOUNTER 2019-12-28 21:01 | Emergency (ER) | payer SELFPAY ==
[~2019-12-28] VITALS: Ht 172.7 cm; Wt 72.7 kg
[2019-12-28 21:36] LABS: BILIRUBIN,URINE NEGATIVE (NEG); CLARITY,URINE CLEAR; COLOR,URINE YELLOW; NITRITE,URINE NEGATIVE (NEG); PH,URINE 5.5 (<5.0-8.0); PROTEIN,URINE NEGATIVE (NEG-TRACE); UROBILINOGEN,URINE 0.2 mg/dL (0.2 mg/dL)
--- NOTE | 2019-12-28 21:38 | PHYS DOC ---
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 Patient states that she's had some nausea but no vomiting. She denies any diarrhea. She denies any vaginal discharge. She states the pain is progressively getting worse and she rates it currently at an 8 out of 10. She states the right is worse than left. She states that nothing is improving her symptoms.[] Review of Systems: Review of Systems: Constitutional: Denies fever or chills. [] Respiratory: Denies cough or shortness of breath. [] Cardiovascular: Denies chest pain or edema. [] GI: Complains of lower abdominal pain without vomiting or diarrhea. [] : Denies dysuria. [] Neurologic: Denies headache, focal weakness or sensory changes. [] A full 10 point review of systems has been reviewed and is otherwise negative. Heart Score: Risk Factors: Risk Factors: DM, Current or recent (<one month) smoker, HTN, HLP, family history of CAD, obesity. Risk Scores: Score 0 - 3: 2.5% MACE over next 6 weeks - Discharge Home Score 4 - 6: 20.3% MACE over next 6 weeks - Admit for Clinical Observation Score 7 - 10: 72.7% MACE over next 6 weeks - Early Invasive Strategies Current Medications: Current Medications Medications (Trade) Dose Ordered Sig/Andrew Start Time Stop Time Status Last Admin Dose Admin Sodium Chloride 1,000 ml @ 1,000 mls/hr Q1H 12/28/19 22:00 12/28/19 22:59 Allergies: Allergies: Allergies Coded Allergies Type Severity Reaction Last Updated Verified No Known Drug Allergies 12/13/16 No Physical Exam: PE: Constitutional: Well developed, well nourished, no acute distress, non-toxic appearance. [] HENT: Normocephalic, atraumatic, bilateral external ears normal, oropharynx moist, no oral exudates, nose normal. [] Eyes: PERRLA, EOMI, conjunctiva normal, no discharge. [] Neck: Normal range of motion, no tenderness, supple, no stridor. [] Cardiovascular: Regular rate and rhythm[] Lungs & Thorax: Bilateral breath sounds clear to auscultation [] Abdomen: Bowel sounds normal, soft, with moderate right lower abdominal tenderness and diffuse mild tenderness. [] Skin: Warm, dry, no erythema, no rash. [] Extremities: No tenderness, no cyanosis, no clubbing, ROM intact, no edema. [] Neurologic: Alert and oriented X 3, no focal deficits noted. [] Current Patient Data: Labs: Laboratory Tests Test 12/28/19 21:25 POC Urine HCG, Qualitative Hcg negative (Negative) EKG: EKG: [] Radiology/Procedures: Radiology/Procedures: [] Impression: PROCEDURE: PELVIS W/TV PELVIS W/TV History: Pelvic pain for 2 weeks Comparison: None. Findings: Multiple transabdominal sonographic images of pelvis are submitted. Uterus measured 9.5 x 4.5 x 5.9 cm. Left ovary measured 2.1 x 2.9 x 2.5 cm with normal low resistance vascularity. There is some free fluid near the left ovary. Right ovary measured 3.4 x 2.8 x 2.3 cm with normal low resistance vascularity. Transvaginal ultrasound: Multiple transvaginal sonographic images of the pelvis are submitted. There is a nabothian cyst up to 1 cm in size. Uterus measured 9.8 x 4.7 x 6 cm. Endometrium is within normal limits about 0.6 cm. There is diioh-jc-irxjijvr quantity of simple free fluid in the posterior cul-de-sac, also some extent in the adnexal regions bilaterally. There is normal low resistance vascularity of the right ovary. Right ovary measured 3.2 x 3.9 x 1.6 cm. There are several follicles of the right ovary. Left ovary measured 2.1 x 3.2 x 2 cm with normal color flow and low resistance vascularity. Impression: 1. There is likely nonspecific simple appearing free fluid in the cul-de-sac extending to the adnexal regions bilaterally. No other significant abnormality is demonstrated. Electronically signed by: Justin Hooper MD (12/28/2019 10:25 PM) [facility] Course & Med Decision Making: Course & Med Decision Making Pertinent Labs and Imaging studies reviewed. (See chart for details) [] Dragon Disclaimer: Cristina Disclaimer: This electronic medical record was generated, in whole or in part, using a voice recognition dictation system. Departure Departure Impression: Primary Impression: Pelvic pain in female Disposition: 07 AGAINST MEDICAL ADVICE Condition: GOOD Referrals: NO PCP (PCP) LALO HARRIS Jr. DO Dec 28, 2019 21:38
[2019-12-28 21:52] LABS: BACTERIA,URINE FEW /HPF (0-FEW); SQUAMOUS EPITHELIAL CELL,UR MANY /LPF
[2019-12-28 22:23] VITALS: BP 102/67
--- NOTE | 2019-12-28 22:28 | RAD ---
PELVIS W/TV History: Pelvic pain for 2 weeks Comparison: None. Findings: Multiple transabdominal sonographic images of pelvis are submitted. Uterus measured 9.5 x 4.5 x 5.9 cm. Left ovary measured 2.1 x 2.9 x 2.5 cm with normal low resistance vascularity. There is some free fluid near the left ovary. Right ovary measured 3.4 x 2.8 x 2.3 cm with normal low resistance vascularity. Transvaginal ultrasound: Multiple transvaginal sonographic images of the pelvis are submitted. There is a nabothian cyst up to 1 cm in size. Uterus measured 9.8 x 4.7 x 6 cm. Endometrium is within normal limits about 0.6 cm. There is jkrcp-[id number] quantity of simple free fluid in the posterior cul-de-sac, also some extent in the adnexal regions bilaterally. There is normal low resistance vascularity of the right ovary. Right ovary measured 3.2 x 3.9 x 1.6 cm. There are several follicles of the right ovary. Left ovary measured 2.1 x 3.2 x 2 cm with normal color flow and low resistance vascularity. Impression: 1. There is likely nonspecific simple appearing free fluid in the cul-de-sac extending to the adnexal regions bilaterally. No other significant abnormality is demonstrated. Electronically signed by: Justin Hooper MD (12/28/2019 10:25 PM) [facility]
[2019-12-28] MEDS: IV NORMAL SALINE 1000ML BAG 1,000 ML IV SCH (22:35)
== END 2019-12-28 22:25 | disposition left against medical advice (07) ==
LOC: ER 21:01
DX: R10.2 Pelvic and perineal pain (principal)
CPT/HCPCS: 76830; 76856; 81001; 81025; 87086; 99284

== ENCOUNTER 2020-01-02 09:02 | Emergency (ER) | payer SELFPAY ==
[~2020-01-02] VITALS: Ht 175.3 cm; Wt 52.7 kg
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
[2020-01-02] MEDS ORDERED: metroNIDAZOLE 500 MG TABLET PO ONE (09:30)
[2020-01-02] MEDS ORDERED: cefTRIAXone IM 1 GM VIAL IM ONE (09:30)
[2020-01-02 09:38] LABS: BILIRUBIN,URINE NEGATIVE (NEG); CLARITY,URINE CLEAR; COLOR,URINE YELLOW; NITRITE,URINE NEGATIVE (NEG); PH,URINE 6.5 (<5.0-8.0); PROTEIN,URINE NEGATIVE (NEG-TRACE)
[2020-01-02 10:00] LABS: SQUAMOUS EPITHELIAL CELL,UR MOD /LPF
[2020-01-02 10:01] LABS: BACTERIA,URINE FEW /HPF (0-FEW); RBC,URINE 0 /HPF (0-2)
[2020-01-02 10:08] VITALS: BP 106/67
[2020-01-02] MEDS ORDERED: DOXY100T PO (10:20)
== END 2020-01-02 10:30 | disposition home or self-care (01) ==
LOC: ER 09:02
DX: A56.02 Chlamydial vulvovaginitis (principal); R10.2 Pelvic and perineal pain; R10.30 Lower abdominal pain, unspecified; Z98.890 Other specified postprocedural states
CPT/HCPCS: 81001; 81025; 87086; 96372; 99283; J0696

== ENCOUNTER 2020-05-01 11:43 | Emergency (ER) | payer SELFPAY ==
[~2020-05-01] VITALS: Ht 172.7 cm; Wt 130.0 kg
[2020-05-01 12:01] VITALS: BP 130/73
[2020-05-01 12:05] LABS: BILIRUBIN,URINE NEGATIVE (NEG); CLARITY,URINE CLEAR; COLOR,URINE YELLOW; NITRITE,URINE NEGATIVE (NEG); PROTEIN,URINE NEGATIVE (NEG-TRACE); UROBILINOGEN,URINE 0.2 mg/dL (0.2 mg/dL)
[2020-05-01 12:13] LABS: BACTERIA,URINE MODERATE /HPF (0-FEW); SQUAMOUS EPITHELIAL CELL,UR MOD /LPF
[2020-05-01] MEDS ORDERED: AZITHROMYCIN 250 MG TABLET. PO ONE (12:15)
[2020-05-01] MEDS ORDERED: cefTRIAXone IM 250 MG VIAL IM ONE (12:15)
[2020-05-01 12:17] LABS: TRICHOMONAS,URINE PRESENT
--- NOTE | 2020-05-01 13:16 | PHYS DOC ---
Past Medical History Past Medical History: No Pertinent History, STD, Other Additional Past Medical Histor: heart murmur from FO or tetralogy Past Surgical History: Other Additional Past Surgical Histo: open heart surgery@2months old Smoking Status: Never Smoker Alcohol Use: None Drug Use: None General Adult EDM: Chief Complaint: SEXUALLY TRANSMITTED DISEASE HPI: HPI: Patient is a 24-year-old female presenting with intermittent vaginal bleeding for the last 3 weeks. Patient states she was diagnosed with chlamydia a few months prior and had similar symptoms of intermittent vaginal bleeding and is requesting antibiotics. Patient states that she is not , her menstrual cycles are regular and recur monthly with her period lasting 7 days. Her last menstrual period was 10 days ago Review of Systems: Review of Systems: Constitutional: Denies fever or chills. [] Eyes: Denies change in visual acuity. [] HENT: Denies nasal congestion or sore throat. [] Respiratory: Denies cough or shortness of breath. [] Cardiovascular: Denies chest pain or edema. [] GI: Denies abdominal pain, nausea, vomiting, bloody stools or diarrhea. [] : Denies dysuria. [] Musculoskeletal: Denies back pain or joint pain. [] Integument: Denies rash. [] Neurologic: Denies headache, focal weakness or sensory changes. [] Endocrine: Denies polyuria or polydipsia. [] Lymphatic: Denies swollen glands. [] Psychiatric: Denies depression or anxiety. [] Current Medications: Current Medications Medications (Trade) Dose Ordered Sig/Andrew Start Time Stop Time Status Last Admin Dose Admin Azithromycin (Zithromax) 1,000 mg 1X ONCE 05/01/20 12:15 05/01/20 12:16 DC 05/01/20 12:50 1,000 MG Ceftriaxone Sodium (Rocephin Im) 250 mg 1X ONCE 05/01/20 12:15 05/01/20 12:16 DC 05/01/20 12:51 250 MG Allergies: Allergies: Allergies Coded Allergies Type Severity Reaction Last Updated Verified No Known Drug Allergies 12/13/16 No Physical Exam: PE: Constitutional: Well developed, well nourished, no acute distress, non-toxic appearance. [] HENT: Normocephalic, atraumatic, bilateral external ears normal, oropharynx moist, no oral exudates, nose normal. [] Eyes: PERRLA, EOMI, conjunctiva normal, no discharge. [] Neck: Normal range of motion, no tenderness, supple, no stridor. [] Cardiovascular:Heart rate regular rhythm, no murmur [] Lungs & Thorax: Bilateral breath sounds clear to auscultation [] Abdomen: Bowel sounds normal, soft, no tenderness, no masses, no pulsatile masses. [] Skin: Warm, dry, no erythema, no rash. [] Back: No tenderness, no CVA tenderness. [] Extremities: No tenderness, no cyanosis, no clubbing, ROM intact, no edema. [] Neurologic: Alert and oriented X 3, normal motor function, normal sensory function, no focal deficits noted. [] Psychologic: Affect normal, judgement normal, mood normal. [] Current Patient Data: Labs: Laboratory Tests Test 05/01/20 11:55 Urine Collection Type Unknown Urine Color Yellow Urine Clarity Clear Urine pH 6.0 (<5.0-8.0) Urine Specific Bowers 1.025 (1.000-1.030) Urine Protein Negative mg/dL (NEG-TRACE) Urine Glucose (UA) Negative mg/dL (NEG) Urine Ketones (Stick) Negative mg/dL (NEG) Urine Blood Negative (NEG) Urine Nitrite Negative (NEG) Urine Bilirubin Negative (NEG) Urine Urobilinogen Dipstick 0.2 mg/dL (0.2 mg/dL) Urine Leukocyte Esterase Moderate (NEG) Urine RBC 1-2 /HPF (0-2) Urine WBC 11-20 /HPF (0-4) Urine Squamous Epithelial Cells Mod /LPF Urine Bacteria Moderate /HPF (0-FEW) Urine Mucus Marked /LPF Urine Trichomonas Present Vital Signs: Vital Signs Date Time Temp Pulse Resp B/P (MAP) Pulse Ox O2 Delivery O2 Flow Rate FiO2 05/01/20 12:01 98.4 92 18 130/73 (92) 100 Room Air 98.4 EKG: EKG: [] Radiology/Procedures: Radiology/Procedures: [] Course & Med Decision Making: Course & Med Decision Making Pertinent Labs and Imaging studies reviewed. (See chart for details) [] Dragon Disclaimer: Dragon Disclaimer: This electronic medical record was generated, in whole or in part, using a voice recognition dictation system. Departure Departure Impression: Primary Impression: Metrorrhagia Additional Impression: Trichomoniasis of vagina Disposition: HOME, SELF-CARE Condition: STABLE Referrals: NO PCP (PCP) HELIO ACEVES Jr, MD Patient Instructions: Metrorrhagia, [id number], Trichomoniasis Scripts Metronidazole (FLAGYL) 500 Mg Tablet 500 MG PO BID for Vaginosis, #14 TAB Prov: SABRINA BENNETT DO 05/01/20 Justicifation of Admission Dx: Justifications for Admission: Justification of Admission Dx: N/A SABRINA BENNETT DO May 01, 2020 13:16
[2020-05-01] MEDS ORDERED: METR500T PO (13:37)
[2020-05-02 20:08] LABS: GC PROBE Positive (Negative)
== END 2020-05-01 13:46 | disposition home or self-care (01) ==
LOC: ER 11:43
DX: A59.01 Trichomonal vulvovaginitis (principal); N92.1 Excessive and frequent menstruation with irregular cycle; Z98.890 Other specified postprocedural states
CPT/HCPCS: 81001; 87086; 87491; 87591; 96372; 99283; J0696; Q0111; 99284

== ENCOUNTER 2020-07-04 15:39 | Emergency (ER) | payer SELFPAY ==
[~2020-07-04] VITALS: Ht 172.7 cm; Wt 75.8 kg
[2020-07-04 15:47] VITALS: BP 129/62
[2020-07-04 16:51] LABS: BILIRUBIN,URINE NEGATIVE (NEG); CLARITY,URINE CLEAR; COLOR,URINE YELLOW; NITRITE,URINE NEGATIVE (NEG); PH,URINE 7.5 (<5.0-8.0); PROTEIN,URINE NEGATIVE (NEG-TRACE)
[2020-07-04 17:00] LABS: RBC,URINE 0 /HPF (0-2)
[2020-07-04 17:01] LABS: BACTERIA,URINE FEW /HPF (0-FEW)
[2020-07-04] MEDS ORDERED: CEPH-264 PO (17:10)
--- NOTE | 2020-07-04 17:11 | ED.ADGEN ---
Past Medical History Past Medical History: STD, Other Additional Past Medical Histor: heart murmur from FO or tetralogy Past Surgical History: Other Additional Past Surgical Histo: open heart surgery@2months old Smoking Status: Never Smoker Alcohol Use: None Drug Use: None General Adult EDM: Chief Complaint: MENSTRUAL PAIN/CRAMPS HPI: HPI: Patient is a 24 year old AA female who presents to the emergency department with complaints of pelvic cramping and increased urinary frequency for the last week. Patient reports increased pain after she urinates. She denies any hematuria, irregular vaginal discharge, vaginal odor, vaginal bleeding, back pain, fever, body aches, fatigue, nausea, vomiting, diarrhea, cough, shortness of breath, or fever. She denies any alleviating factors, pain is worse after she urinates. Patient reports her last menstrual cycle was on the of this month, she denies but does not take control or use protection. Review of Systems: Review of Systems: Complete ROS is negative unless otherwise noted in HPI. Allergies: Allergies: Allergies Coded Allergies Type Severity Reaction Last Updated Verified No Known Drug Allergies 07/04/20 No Physical Exam: PE: See Above Constitutional: Well developed, well nourished, no acute distress, non-toxic appearance. [] HENT: Normocephalic, atraumatic, bilateral external ears normal, nose normal. [] Eyes: PERRLA, EOMI, conjunctiva normal, no discharge. [] Neck: Normal range of motion, no stridor. [] Cardiovascular:Heart rate regular rhythm Lungs & Thorax: Respirations even and unlabored, no retractions, no respiratory distress Abdomen: soft, suprapubic tenderness to palpation Back: No CVA tenderness Skin: Warm, dry, no erythema, no rash. [] Extremities: No cyanosis, ROM intact, no edema. [] Neurologic: Alert and oriented X 3, no focal deficits noted. [] Psychologic: Affect normal, judgement normal, mood normal. [] Current Patient Data: Labs: Laboratory Tests Test 07/04/20 15:00 07/04/20 16:16 Urine Collection Type Void Urine Color Yellow Urine Clarity Clear Urine pH 7.5 (<5.0-8.0) Urine Specific [place] Range 1.025 (1.000-1.030) Urine Protein Negative mg/dL (NEG-TRACE) Urine Glucose (UA) Negative mg/dL (NEG) Urine Ketones (Stick) Trace mg/dL (NEG) Urine Blood Negative (NEG) Urine Nitrite Negative (NEG) Urine Bilirubin Negative (NEG) Urine Urobilinogen Dipstick 1.0 mg/dL (0.2 mg/dL) Urine Leukocyte Esterase Negative (NEG) Urine RBC 0 /HPF (0-2) Urine WBC 5-10 /HPF (0-4) Urine Squamous Epithelial Cells Mod /LPF Urine Bacteria Few /HPF (0-FEW) Urine Mucus Marked /LPF POC Urine HCG, Qualitative Hcg negative (Negative) Vital Signs: Vital Signs Date Time Temp Pulse Resp B/P (MAP) Pulse Ox O2 Delivery O2 Flow Rate FiO2 07/04/20 15:47 98.2 79 16 129/62 (84) 100 Room Air 98.2 EKG: EKG: [] Heart Score: Risk Factors: Risk Factors: DM, Current or recent (<one month) smoker, HTN, HLP, family history of CAD, obesity. Risk Scores: Score 0 - 3: 2.5% MACE over next 6 weeks - Discharge Home Score 4 - 6: 20.3% MACE over next 6 weeks - Admit for Clinical Observation Score 7 - 10: 72.7% MACE over next 6 weeks - Early Invasive Strategies Radiology/Procedures: Radiology/Procedures: [] Course & Med Decision Making: Course & Med Decision Making Pertinent Labs and Imaging studies reviewed. (See chart for details) [] Dragon Disclaimer: Dragon Disclaimer: This electronic medical record was generated, in whole or in part, using a voice recognition dictation system. Departure Departure Impression: Primary Impression: Urinary tract infection Disposition: 01 DC HOME SELF CARE/HOMELESS Condition: STABLE Referrals: NO PCP (PCP) Patient Instructions: Urinary Tract Infection, [id number] Additional Instructions: Fill prescription(s) and use as directed. Avoid bladder irritants such as caffeine, carbonation, and spicy foods. Increase clear fluids. Follow up with your primary care doctor if symptoms persist, return to the ER if symptoms worsen. Scripts Cephalexin (KEFLEX) 500 Mg Capsule 500 MG PO BID for 7 Days, #14 CAP 0 Refills Prov: PHOENIX ALEX APRN 07/04/20 Problem Qualifiers Primary Impression: Urinary tract infection Urinary tract infection type: acute cystitis Hematuria presence: without hematuria Qualified Codes: N30.00 - Acute cystitis without hematuria PHOENIX ALEX NIGHT ORDER SELECTOR Jul 04, 2020 17:11
== END 2020-07-04 17:50 | disposition home or self-care (01) ==
LOC: ER 15:39
DX: N30.00 Acute cystitis without hematuria (principal); R10.2 Pelvic and perineal pain; Z98.890 Other specified postprocedural states
CPT/HCPCS: 81001; 81025; 87086; 99283

== ENCOUNTER 2020-08-04 13:39 | Emergency (ER) | payer SELFPAY ==
[~2020-08-04] VITALS: Ht 175.3 cm; Wt 65.9 kg
[~2020-08-04 13:39] MED LIST changes: +CEPH-264 PO
[2020-08-04 13:45] VITALS: BP 129/78
--- NOTE | 2020-08-04 14:15 | PHYS DOC ---
Past Medical History Past Medical History: STD, Other Additional Past Medical Histor: heart murmur from FO or tetralogy Past Surgical History: Other Additional Past Surgical Histo: open heart surgery@2months old Smoking Status: Never Smoker Alcohol Use: Occasionally Drug Use: None General Adult EDM: Chief Complaint: FOOT INJURY PAIN HPI: HPI: Patient is a 24 year old female patient presenting to the ED today with sharp intermittent 10 out of 10 left foot pain that began this morning. Patient states last night she rolled her left foot running up her heel. She states she had had a couple alcoholic drinks when this happened. Denies hitting her head on the ground. Denies any loss of consciousness. States the pain is worse on weightbearing. Denies anything specifically relieving the pain. Review of Systems: Review of Systems: Constitutional: Denies fever or chills. [] Musculoskeletal: Reports left foot pain Integument: Denies rash. [] Neurologic: Denies headache, focal weakness or sensory changes. [] Psychiatric: Denies depression or anxiety. [] Heart Score: Risk Factors: Risk Factors: DM, Current or recent (<one month) smoker, HTN, HLP, family history of CAD, obesity. Risk Scores: Score 0 - 3: 2.5% MACE over next 6 weeks - Discharge Home Score 4 - 6: 20.3% MACE over next 6 weeks - Admit for Clinical Observation Score 7 - 10: 72.7% MACE over next 6 weeks - Early Invasive Strategies Allergies: Allergies: Allergies Coded Allergies Type Severity Reaction Last Updated Verified No Known Drug Allergies 07/04/20 No Physical Exam: PE: Constitutional: Well developed, well nourished, no acute distress, non-toxic appearance. [] Skin: Warm, dry, no erythema, no rash. [] Back: No tenderness, no CVA tenderness. [] Extremities: Left foot with no obvious deformity, mild soft tissue swelling noted on top of the foot. Tenderness on palpation of the top of the left foot. No navicular bone tenderness, no tenderness on the base of the fifth metatarsal of the left foot. +2 left pedal pulse. Range of motion intact to the left foot and toes. Cap refill less than 2 seconds to left toes. Neurologic: Alert and oriented X 3, normal motor function, normal sensory function, no focal deficits noted. [] Psychologic: Affect normal, judgement normal, mood normal. [] Current Patient Data: Vital Signs: Vital Signs Date Time Temp Pulse Resp B/P (MAP) Pulse Ox O2 Delivery O2 Flow Rate FiO2 08/04/20 13:45 97.8 89 19 129/78 (95) 100 Room Air 97.8 EKG: EKG: [] Radiology/Procedures: Radiology/Procedures: []PROCEDURE: FOOT LEFT 3V 3 view study of the left foot Clinical indications: Patient fell. Left foot pain. FINDINGS: No acute fracture or dislocation or lytic process or periosteal reaction is seen. There is an accessory ossification center of the proximal medial navicular bone which is a normal anatomical variant. No plantar spur of the calcaneus is seen. IMPRESSION: No acute osseous abnormality. Electronically signed by: Arleth Patel MD (08/04/2020 2:19 PM) [id number] DICTATED and SIGNED BY: ARLEHT PATEL MD DATE: 08/04/20 [id number] 0 Course & Med Decision Making: Course & Med Decision Making Pertinent Labs and Imaging studies reviewed. (See chart for details) This is a 24-year-old female patient presenting to the ED today with left foot pain that began today though she reports rolling her foot yesterday. Left foot x-rays interpreted by radiologist were negative for any acute findings. Patient was discharged home. Ice elevation encouraged. OTC pain relievers. Follow-up with Ortho in 1 week if pain persist Dragon Disclaimer: Dragon Disclaimer: This electronic medical record was generated, in whole or in part, using a voice recognition dictation system. Departure Departure Impression: Primary Impression: Sprain of left foot Qualified Codes: S93.602A - Unspecified sprain of left foot, initial encounter Additional Impression: Fall Qualified Codes: W19.XXXA - Unspecified fall, initial encounter Disposition: 01 DC HOME SELF CARE/HOMELESS Condition: STABLE Referrals: NO PCP (PCP) NANCY AVILA MD follow up in 1-2 weeks Patient Instructions: Foot Sprain-Brief Additional Instructions: You were evaluated in the emergency room for left foot pain, your left foot x- rays were negative for any acute findings. Try to ice and elevate the extremity. Take [id number] pain relievers as needed for pain. Wear the provided Trae bandage as tolerated. Follow-up with orthopedic doctor provided in 1 week if pain persists MUTUNGA,YONY POKER IN Aug 04, 2020 14:15
--- NOTE | 2020-08-04 14:21 | RAD ---
3 view study of the left foot Clinical indications: Patient fell. Left foot pain. FINDINGS: No acute fracture or dislocation or lytic process or periosteal reaction is seen. There is an accessory ossification center of the proximal medial navicular bone which is a normal anatomical variant. No plantar spur of the calcaneus is seen. IMPRESSION: No acute osseous abnormality. Electronically signed by: Brandt Patel MD (08/04/2020 2:19 PM) [id number]
== END 2020-08-04 15:10 | disposition home or self-care (01) ==
LOC: ER 13:39
DX: S93.602A Unspecified sprain of left foot, initial encounter (principal); X50.9XXA Other and unspecified overexertion or strenuous movements or postures, initial encounter; Y93.89 Activity, other specified; Y92.89 Other specified places as the place of occurrence of the external cause; Y99.8 Other external cause status
CPT/HCPCS: 73630; 99283

== ENCOUNTER 2021-06-01 22:28 | Emergency (ER) | payer OTHER ==
[~2021-06-01] VITALS: Ht 172.7 cm; Wt 72.7 kg
[2021-06-01 22:50] VITALS: BP 120/69
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
== END 2021-06-02 01:02 ==
LOC: ER 22:28
DX: M79.671 Pain in right foot (principal); G89.11 Acute pain due to trauma; M54.2 Cervicalgia; M54.6 Pain in thoracic spine; M54.5 Low back pain; R51.9 Headache, unspecified; V49.49XA Driver injured in collision with other motor vehicles in traffic accident, initial encounter; Y93.89 Activity, other specified; Y92.488 Other paved roadways as the place of occurrence of the external cause; Y99.8 Other external cause status
CPT/HCPCS: 70450; 72125; 72128; 72131; 73630; 81025; 99285-25

== ENCOUNTER 2021-06-16 09:16 | Emergency (ER) | payer SELFPAY ==
[~2021-06-16] VITALS: Ht 172.7 cm; Wt 72.0 kg
[2021-06-16 10:41] VITALS: BP 127/72
[2021-06-16] MEDS ORDERED: KETOROLAC TROMETHAMINE 10 MG TABLET PO PRN (10:45)
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
[2021-06-16] MEDS ORDERED: ORPHENADRINE CITRATE 60 MG/2 ML VIAL. IM ONE (11:00)
[2021-06-16] MEDS ORDERED: ORPH100T PO (11:26)
[2021-06-16] MEDS ORDERED: KETO10TA PO (11:26)
== END 2021-06-16 11:50 | disposition home or self-care (01) ==
LOC: ER 09:16
DX: G44.209 Tension-type headache, unspecified, not intractable (principal); M62.830 Muscle spasm of back; R07.89 Other chest pain
CPT/HCPCS: 81025; 96372; 99283; J2360